=== PATIENT | female | born 1980 | race Caucasian/White ===

== ENCOUNTER 2022-08-05 22:40 | Emergency (ER) | payer OTHER, SELFPAY ==
--- NOTE | ~2022-08-05 | CT_ITS ---
EXAMINATION: CT head/brain wo IV con, CT facial bones w IV con CLINICAL INFORMATION: Reason for Exam Changes in vision, left orbital abscess COMPARISON: CT head 01/23/2017 TECHNIQUE: Contiguous axial imaging was performed from the skull base to vertex without intravenous contrast. Sagittal and coronal reformatted images were obtained. This CT examination was performed using dose optimization techniques as appropriate, variously including the following: * Automated exposure control * Adjustment of mA and/or kV according to patient size (this includes techniques or standardized protocols for targeted exams where dose is matched to indication/reason for exam; i.e. extremities or head) Use of iterative reconstruction technique DLP: 677 mGy-cm FINDINGS: HEAD: Please note that streak artifact from metallic earrings limit assessment of the posterior fossa. The ventricles and sulci are normal in size and configuration without significant volume loss or hydrocephalus. There is no abnormal attenuation within the brain parenchyma. No territorial loss of ledezma-white differentiation. No acute intracranial hemorrhage or extra-axial fluid collection. No mass lesion, significant mass effect, or herniation pattern. Osseous structures are intact. FACIAL: There is nonspecific soft tissue swelling/subcutaneous induration within the left inferior preseptal soft tissues tracking into the left facial soft tissues. No drainable soft tissue abscess. No post septal involvement. There is no retrobulbar hematoma/fluid collection. The extraocular muscles and optic nerve sheath complexes are symmetric and normal in appearance. The globes are normal and symmetric. The maxillofacial structures are intact without fracture or suspicious osseous lesion. The osseous structures of the central skull base are intact. The paranasal sinuses are clear without fluid levels. The mastoid air cells and middle ear cavities are clear. Incidental 4 mm air-filled internal laryngocele on the right. Moderate volume adenoidal tonsillar tissue. A metallic tongue piercing and metallic nasal piercings are seen. Mild C5-C6 discogenic disease with small disc osteophyte complex at this level. Normal enhancement of the imaged vascular structures in the neck. CT/CT facial bones w IV con IMPRESSION: 1. No acute intracranial abnormality. 2. There is soft tissue swelling/induration within the left inferior preseptal soft tissues tracking into the left facial soft tissues. No postseptal disease or drainable soft tissue abscess.
[2022-08-05 22:47] VITALS: BP 142/102; PULSE 105; RESP 20; TEMP 36.7; O2SAT 96; BMI 25.9
--- NOTE | 2022-08-05 23:19 | ED.GENADULT ---
HPI - General Adult General Chief complaint: Skin/Abscess/Foreign Body Stated complaint: Infected piercing, and cough Time Seen by Provider: 08/05/22 23:13 Source: patient Mode of arrival: ambulatory Limitations: no limitations History of Present Illness HPI narrative: 41-year-old female presents for evaluation for upper respiratory symptoms and cellulitis to left side of her face. Patient had a piercing below the left lateral eye, the piercing fell out and is now infected. She stated that there is some green drainage that came out of it yesterday and there is some redness surrounding her puncture site. She states that she cannot see out of her left eye and that it hurts when she moves. She does not report any fevers or chills, and is visibly intoxicated at this time. Onset (ago): day(s) (1) Location: face Radiation: non-radiation Severity: mild Quality: burning Pain Consistency: constant Relieving factors: none Exacerbating factors: other (Palpation) Treatments prior to arrival: none Related Data Previous Rx's Medication Instructions Recorded sulfamethoxazole 800 1 tab PO Q12H 7 days #14 tabs 08/06/22 mg-trimethoprim 160 mg tablet (Bactrim DS) Allergies Allergy/AdvReac Type Severity Reaction Status Date / Time No Known Allergies Allergy Unverified 03/23/20 16:45 [No Known Allergies*] Review of Systems Review of Systems: Constitutional: No Fever, No Chills ENT/Mouth: No Ear Pain, No Hoarseness, positive sore throat Eyes: Positive left Eye Pain, No Swelling, No Redness, No Foreign Body Cardiovascular: No Chest Pain, No SOB Respiratory: No Cough, No Dyspnea Gastrointestinal: No Nausea, No Vomiting, No Diarrhea, No abdominal Pain Genitourinary: No Dysuria, No Hematuria Musculoskeletal: positive left-sided facial pain, No Myalgias, No Joint Swelling Skin: Left-sided facial cellulitis, No Skin lacerations, No rash Neuro: No Weakness, No Numbness, No Paresthesias, No Dizziness, No Headache Yes all other systems are reviewed and are negative [facility] Past Medical History Attestation statement: The following information was validated with the patient. Source: old records reviewed Social History Social History Advance Directives: No Physical Exam ED Vital Signs: Vital Signs - 24 hr 08/05/22 22:47 08/06/22 00:20 Temperature 98.0 F 98.4 F Pulse Rate 105 H 72 Respiratory Rate 20 16 Blood Pressure 142/102 H 140/78 H Pulse Oximetry 96 97 Oxygen Delivery Method Room Air Room Air BMI result Body Mass Index 25.9 Appearance: Alert. Oriented X3. No acute distress. Intoxicated Eyes: Pupils equal, round and reactive to light. ENT: Pharynx normal. Neck: Normal inspection. Neck supple. CVS: Normal heart rate and rhythm. Pulses normal. Respiratory: No respiratory distress. Breath sounds normal. Abdomen: Soft and nontender. Skin: Cellulitis to the left lateral cheek Extremities: No lower extremity edema. Gait balanced and coordinated Neuro: No motor deficit. No sensory deficit. Cranial nerves 2-12 intact Course Course Course Narrative: 41-year-old female presents with left-sided facial cellulitis and upper respiratory symptoms. Cellulitis is 1-day-old, she had a piercing to the left side of her face under her left lateral eye on the cheek bone, states that the piercing fell out and noted to be red with green drainage for 1 day. Patient is visibly intoxicated, smells of alcohol, states that she had multiple drinks and cannot recall how many. She does have a history of illicit drug use, but states that she has not used any cocaine today. Patient states that her left eye hurts when she moves it, and that she is having trouble seeing. I held 2 fingers in front of her eye, and she states that she cannot recognize what I am holding in front of her. Interesting to note, the patient is able to use her cellphone without difficulty. Based on patient's symptoms, will order CT scan of facial bones and head. Will order COVID testing as well. 02:02 CT scan of facial bones and head negative for acute findings requiring emergent intervention. There is some cellulitis without abscess. Will have patient follow-up with her primary care physician, give Bactrim DS for facial cellulitis. Patient does understand that she must use Tylenol Motrin as needed for pain management, and should abstain from illicit drug use. Patient verbalized understanding of and agrees plan of care discharge home. Verbalized understanding of signs and symptoms indicating need for emergent intervention. Medications Administered Discontinued Medications Generic Name Dose Route Start Last Admin Trade Name Freq PRN Reason Stop Dose Admin Iohexol 85 ml 08/06/22 01:24 08/06/22 01:25 Iohexol 350 Mg/Ml 100 Ml Infus..Btl IV 08/06/22 01:25 85 ml ONCE ONE Administration Medical Decision Making Differential Diagnosis Differential Diagnoses: The differential diagnosis associated with the presentation includes Admission/Observation Consideration of admission/observation: Escalation of care including admission/observation considered If abscess indicated, will consider admission Lab Data MDM Lab Attestation statement: I reviewed the patient's lab results. Labs: Lab Results 08/05/22 Range/Units 00:22 Influenza Type A (PCR) NEGATIVE (Negative) Influenza Type B (PCR) NEGATIVE (Negative) RSV RNA Qual (PCR) NEGATIVE (Negative) SARS-CoV-2 RNA (RT-PCR) NEGATIVE (Negative) Independent Interpretation I performed an independent interpretation of an: CT Scan Interpretation: FINDINGS: HEAD: Please note that streak artifact from metallic earrings limit assessment of the posterior fossa. The ventricles and sulci are normal in size and configuration without significant volume loss or hydrocephalus.? There is no abnormal attenuation within the brain parenchyma.? No territorial loss of ledezma-white differentiation. No acute intracranial hemorrhage or extra-axial fluid collection.? No mass lesion, significant mass effect, or herniation pattern. Osseous structures are intact. FACIAL: There is nonspecific soft tissue swelling/subcutaneous induration within the left inferior preseptal soft tissues tracking into the left facial soft tissues. No drainable soft tissue abscess. No post septal involvement. There is no retrobulbar hematoma/fluid collection. The extraocular muscles and optic nerve sheath complexes are symmetric and normal in appearance. The globes are normal and symmetric. The maxillofacial structures are intact without fracture or suspicious osseous lesion. The osseous structures of the central skull base are intact. The paranasal sinuses are clear without fluid levels. The mastoid air cells and middle ear cavities are clear. Incidental 4 mm air-filled internal laryngocele on the right. Moderate volume adenoidal tonsillar tissue. A metallic tongue piercing and metallic nasal piercings are seen. Mild C5-C6 discogenic disease with small disc osteophyte complex at this level. Normal enhancement of the imaged vascular structures in the neck. CT/CT head/brain wo IV con IMPRESSION: 1.? No acute intracranial abnormality. 2.? There is soft tissue swelling/induration within the left inferior preseptal soft tissues tracking into the left facial soft tissues. No postseptal disease or drainable soft tissue abscess. Radiology Impression Discussion of test interpretation with radiology: I have reviewed the radiologist's reading. Independent Historian Clinical information obtained from an independent historian. History obtained from or confirmed by: Spouse External Record Review External record reviewed: Outpatient record No prior records at this facility Prescription Management I considered prescription management with: Antibiotic Social Determinants Patient?s care significantly limited by Social Determinants of Health including: Other Social Determinant of Health Discharge Plan Discharge Clinical Impression: Cellulitis, Acute viral syndrome Patient Disposition: Home, Self-Care Instructions: Cellulitis (ED), Viral Syndrome (ED) Additional Instructions: You were evaluated for cellulitis to your face and upper respiratory symptoms. Please take Bactrim DS every 12 hours for the next 7 days. Alternate Tylenol 650 mg every 6 hours and Motrin 600 mg every 6 hours as needed for pain and fever management. Consider taking these medications 3 hours apart so you have pain and fever management every 3 hours. Write down what time you take these medications to prevent accidental overdose. Thank you for choosing this emergency department for evaluation. Please follow-up with primary care physician as needed. Return to the emergency department for any new, concerning, or worsening symptoms. Prescriptions: New sulfamethoxazole-trimethoprim [Bactrim DS] 800-160 mg tablet 1 tab PO Q12H 7 Days Qty: 14 0RF Referrals: Pamela Patrick MD [Primary Care Provider] - 1 week (Facial cellulitis)
[2022-08-06 00:20] VITALS: BP 140/78; PULSE 72; RESP 16; TEMP 36.9; O2SAT 97
[2022-08-06 01:14] LABS: Influenza A PCR NEGATIVE (Negative); Influenza B PCR NEGATIVE (Negative); Resp Syncy Virus RNA Qual PCR NEGATIVE (Negative); SARS COV2 PCR INHOUSE NEGATIVE (Negative)
[2022-08-06] MEDS: iohexoL 350 MG/ML 100 ML INFUS..BTL 85 ML IV (01:25)
== END 2022-08-06 02:58 | disposition home or self-care (01) ==
PROVIDERS: Nurse Practitioner Family; Emergency Provider Emergency Medicine; PCP Internal Medicine
DX: L03.211 Cellulitis of face (principal); B34.9 Viral infection, unspecified; Z20.822 Contact with and (suspected) exposure to COVID-19; Z20.828 Contact with and (suspected) exposure to other viral communicable diseases; Z79.899 Other long term (current) drug therapy
CPT/HCPCS: 0241U; 70450; 70487; 99283; 99284; Q9967

== ENCOUNTER 2023-06-02 18:21 | Emergency (ER) | payer OTHER, SELFPAY ==
--- NOTE | ~2023-06-02 | US_ITS ---
Examination: Ultrasound OB limited. CLINICAL INDICATION: Status post DC one month ago. Rule out residual products of conception. COMPARISON: None. TECHNIQUE: Transabdominal and transvaginal imaging of pelvis is performed. FINDINGS: The uterus is anteverted measuring 7.7 x 3.4 x 5.1 cm. Endometrial thickness is 0.5 cm. There are 2 hypoechoic lesions. 1. Lesion in the upper body of uterus measures 0.8 x 0.4 x 0.6 cm. 2. Lesion in the right fundus measures 0.7 x 0.5 x 0.6 cm. There is a small complex fundal cyst measuring 1.1 x 0.9 x 1.0 cm. There are additional small myometrial simple cyst visualized measuring 0.4 x 0.3 x 0.3 cm and 0.4 x 0.2 x 0.3 cm. There is small amount of free fluid in endocervical canal. Right ovary measures 4.5 x 3.4 x 3.6 cm and volume 29 mL. There is a moderate size simple cyst measuring 2.3 x 2.2 x 3.2 cm. Normal arterial and venous flow seen in the right ovary. Left ovary measures 3.2 x 1.4 x 2.9 cm and volume 7.0 mL. Normal arterial and venous Doppler flow seen. There is no free fluid in the cul-de-sac. US/US OB limited IMPRESSION: At least 2 uterine fibroids. Several myometrial cysts. There is a small complex cyst in the fundus as described above. There is free fluid in the cul-de-sac. Moderate size simple cyst right ovary.
--- NOTE | ~2023-06-02 | US_ITS ---
Examination: Ultrasound OB limited. CLINICAL INDICATION: Status post DC one month ago. Rule out residual products of conception. COMPARISON: None. TECHNIQUE: Transabdominal and transvaginal imaging of pelvis is performed. FINDINGS: The uterus is anteverted measuring 7.7 x 3.4 x 5.1 cm. Endometrial thickness is 0.5 cm. There are 2 hypoechoic lesions. 1. Lesion in the upper body of uterus measures 0.8 x 0.4 x 0.6 cm. 2. Lesion in the right fundus measures 0.7 x 0.5 x 0.6 cm. There is a small complex fundal cyst measuring 1.1 x 0.9 x 1.0 cm. There are additional small myometrial simple cyst visualized measuring 0.4 x 0.3 x 0.3 cm and 0.4 x 0.2 x 0.3 cm. There is small amount of free fluid in endocervical canal. Right ovary measures 4.5 x 3.4 x 3.6 cm and volume 29 mL. There is a moderate size simple cyst measuring 2.3 x 2.2 x 3.2 cm. Normal arterial and venous flow seen in the right ovary. Left ovary measures 3.2 x 1.4 x 2.9 cm and volume 7.0 mL. Normal arterial and venous Doppler flow seen. There is no free fluid in the cul-de-sac. US/US OB transvaginal IMPRESSION: At least 2 uterine fibroids. Several myometrial cysts. There is a small complex cyst in the fundus as described above. There is free fluid in the cul-de-sac. Moderate size simple cyst right ovary.
[2023-06-02 18:44] VITALS: BP 129/76; PULSE 81; RESP 18; TEMP 36.2; O2SAT 99; BMI 23.2
--- NOTE | 2023-06-02 18:44 | ED.ABDPAIN ---
HPI - Abdominal Pain General Chief Complaint: Vaginal Bleeding Stated Complaint: ?Kidney stones Related Data Previous Rx's Medication Instructions Recorded sulfamethoxazole 800 1 tab PO Q12H 7 days #14 tabs 08/06/22 mg-trimethoprim 160 mg tablet (Bactrim DS) Allergies Allergy/AdvReac Type Severity Reaction Status Date / Time No Known Allergies Allergy Verified 06/02/23 18:48 [No Known Allergies*] PMFSH Social History Social History Advance Directives: No Advance Directives Information Provided: No Physical Exam ED Vital Signs: BMI result Body Mass Index 23.2 Course Course Course Narrative: This is a rapid medical exam. Deferred additional HPI, ROS, PE to primary provider. 42 yo female with no known medical history here with complaints of vomiting, chills, vaginal pain/pelvic pain, dysuria, hematuria vs vaginal bleeding. Had D&C one month ago with tubal ligation (was 7 weeks ). Will obtain labs, UA, urine VSS Medical Decision Making Lab Data 06/02/23 19:09 06/02/23 19:09 Labs: Lab Results 06/02/23 Range/Units 19:09 WBC 10.7 (4.8-10.8) X10*3/uL RBC 4.43 (4.20-5.50) X10*6/uL Hgb 13.2 (12.0-16.0) g/dl Hct 41.3 (37.0-47.0) % MCV 93.2 (80.0-98.0) fL MCH 29.8 (27.0-33.0) pg MCHC 32.0 (31.0-35.0) g/dl RDW 14.5 (11.0-16.0) % Plt Count 337 (160-400) X10*3/uL MPV 9.6 (9.4-12.3) fL Immature Gran % (Auto) 0.6 H (0.0-0.4) % Neut % (Auto) 68.5 (45-73) % Lymph % (Auto) 24.7 (20-40) % [place] % (Auto) 5.3 (2-11) % Eos % (Auto) 0.3 (0-4) % Baso % (Auto) 0.6 (0-2) % Lymph # (Auto) 2.6 (1.2-4.9) X10*3/uL [place] # (Auto) 0.6 (0.1-1.2) X10*3/uL Eos # (Auto) 0.0 (0.0-0.4) X10*3/uL Baso # (Auto) 0.1 (0.0-0.2) X10*3/uL Abs Immat Gran (auto) 0.06 H (0.00-0.03) X10*3/uL Absolute Neuts (auto) 7.3 (2.0-8.3) x10*3/uL Absolute Nucleated RBC 0.000 (0.0-0.012) X10*3/uL Nucleated RBC % (auto) 0.0 (0.0-0.2) /100WBC Sodium 144 (135-145) mmol/L Potassium 4.7 (3.3-5.1) mmol/L Chloride 112 H (96-108) mmol/L Carbon Dioxide 23 (22-29) mmol/L Anion Gap 14 (12-20) BUN 8 L (9-16) mg/dL Creatinine 0.69 (0.5-1.4) mg/dL Estim Creat Clear Calc 76.2 Estimated GFR > 60 Random Glucose 105 (60-115) mg/dL Calcium 8.7 (8.4-10.2) mg/dL Total Bilirubin 0.2 (0.0-1.0) mg/dL Direct Bilirubin < 0.2 (0.0-0.5) mg/dL AST 17 (5-31) U/L ALT 9 (0-31) U/L Alkaline Phosphatase 68 (39-117) U/L Total Protein 7.9 (6.5-8.0) g/dL Albumin 4.1 (3.5-5.0) g/dL Beta HCG, Quant < 2 mIU/mL Medications Administered Discontinued Medications Generic Name Dose Route Start Last Admin Trade Name Freq PRN Reason Stop Dose Admin Acetaminophen 975 mg 06/02/23 18:55 06/02/23 18:56 Acetaminophen 325 Mg Tablet PO 06/02/23 18:56 975 mg ONCE ONE Administration Discharge Plan Discharge Clinical Impression: Abdominal pain Patient Disposition: Left W/O Completing Treatment Prescriptions: No Action sulfamethoxazole-trimethoprim [Bactrim DS] 800-160 mg tablet 1 tab PO Q12H 7 Days Qty: 14 0RF Discharge Date/Time: 06/02/23 23:03
[2023-06-02] MEDS: Acetaminophen 325 MG TABLET 975 MG PO (18:56)
[2023-06-02 19:15] LABS: MANUAL DIFF FLAG NO
[2023-06-02 19:34] LABS: Basophils Absolute Auto 0.1 X10*3/uL (0.0-0.2); Basophils Percent Auto 0.6 % (0-2); Eosinophils Percent Auto 0.3 % (0-4); Hematocrit 41.3 % (37.0-47.0); Hemoglobin 13.2 g/dl (12.0-16.0); Imm Gran Abs Auto 0.06 X10*3/uL (0.00-0.03); Imm Gran Pct Auto 0.6 % (0.0-0.4); Lymphocytes Absolute Auto 2.6 X10*3/uL (1.2-4.9); Lymphocytes Percent Auto 24.7 % (20-40); Mean Corpuscular Hemoglobin 29.8 pg (27.0-33.0); Mean Corpuscular Volume 93.2 fL (80.0-98.0); Mean Platelet Volume 9.6 fL (9.4-12.3); Monocytes Absolute Auto 0.6 X10*3/uL (0.1-1.2); Monocytes Percent Auto 5.3 % (2-11); Neutrophils Absolute Auto 7.3 x10*3/uL (2.0-8.3); Neutrophils Percent Auto 68.5 % (45-73); Platelet Count 337 X10*3/uL (160-400); Red Blood Count 4.43 X10*6/uL (4.20-5.50); Red Cell Distribution Width 14.5 % (11.0-16.0); White Blood Count 10.7 X10*3/uL (4.8-10.8)
[2023-06-02 19:35] LABS: Alanine Aminotransferase 9 U/L (0-31); Albumin Level 4.1 g/dL (3.5-5.0); Alkaline Phosphatase 68 U/L (39-117); Anion Gap 14 (12-20); Aspartate Amino Transferase 17 U/L (5-31); Bilirubin Direct < 0.2 mg/dL (0.0-0.5); Bilirubin Total 0.2 mg/dL (0.0-1.0); Blood Urea Nitrogen 8 mg/dL (9-16); Calcium 8.7 mg/dL (8.4-10.2); Carbon Dioxide 23 mmol/L (22-29); Chloride 112 mmol/L (96-108); Creatinine Clr Calc Pharmacy 76.2; Estimated Glomerular Filt Rate > 60; Glucose Random 105 mg/dL (60-115); Potassium 4.7 mmol/L (3.3-5.1); Sodium 144 mmol/L (135-145); Total Protein 7.9 g/dL (6.5-8.0)
[2023-06-02 19:39] LABS: HCG Quantitative < 2 mIU/mL
== END 2023-06-02 23:03 | disposition left against medical advice (07) ==
PROVIDERS: Nurse Practitioner Family; Emergency Provider Emergency Medicine
DX: R10.2 Pelvic and perineal pain (principal); Z98.51 Tubal ligation status; Z53.21 Procedure and treatment not carried out due to patient leaving prior to being seen by health care provider
CPT/HCPCS: 36415; 76815; 76817; 80048; 80076; 84702; 85025; 99282; 99284

== ENCOUNTER 2024-01-02 15:12 | Emergency (ER) | payer OTHER, SELFPAY ==
[2024-01-02 15:30] VITALS: BP 166/101; PULSE 94; O2SAT 99
[2024-01-02 15:33] VITALS: BMI 23.8
[2024-01-02 15:45] VITALS: BP 146/91; PULSE 108; RESP 18; O2SAT 99
--- NOTE | 2024-01-02 15:52 | PC.NURSE ---
pt biba after taking multiple shots of unknown alcohol prior to suboxone clinic appointment. when showing up to appt intoxicated, staff called EMS. upon EMS arrival to ED - pt a&ox4 but clearly in distress/distraught emotionally. pt extremely tearful. pt attempted to elope but was detained by security/brought back to the bed. after multiple attempts at attempting to change pt over - pt finally changed over by security. belongings obtained/placed in locker #12. belongings list complete. when asking pt if she was SI/HI - pt stated i'm gonna feel suicidal if any of you come towards me any closer! hot car charger made aware of pt statements. no sob/wob noted. respirations even/unlabored. plan of care ongoing. call us placed within reach.
[2024-01-02 16:36] LABS: MANUAL DIFF FLAG NO
[2024-01-02 16:38] LABS: Basophils Absolute Auto 0.1 X10*3/uL (0.0-0.2); Basophils Percent Auto 0.9 % (0-2); Eosinophils Absolute Auto 0.1 X10*3/uL (0.0-0.4); Eosinophils Percent Auto 0.8 % (0-4); Hematocrit 43.9 % (37.0-47.0); Hemoglobin 14.4 g/dl (12.0-16.0); Imm Gran Abs Auto 0.05 X10*3/uL (0.00-0.03); Imm Gran Pct Auto 0.5 % (0.0-0.4); Lymphocytes Absolute Auto 3.4 X10*3/uL (1.2-4.9); Lymphocytes Percent Auto 33.8 % (20-40); Mean Corpuscular HGB Conc 32.8 g/dl (31.0-35.0); Mean Corpuscular Hemoglobin 29.8 pg (27.0-33.0); Mean Corpuscular Volume 90.7 fL (80.0-98.0); Mean Platelet Volume 9.5 fL (9.4-12.3); Monocytes Absolute Auto 0.6 X10*3/uL (0.1-1.2); Monocytes Percent Auto 6.2 % (2-11); Neutrophils Absolute Auto 5.7 x10*3/uL (2.0-8.3); Neutrophils Percent Auto 57.8 % (45-73); Platelet Count 215 X10*3/uL (160-400); Red Blood Count 4.84 X10*6/uL (4.20-5.50); White Blood Count 9.9 X10*3/uL (4.8-10.8)
--- NOTE | 2024-01-02 16:59 | PC.NURSE ---
labs obtained/sent to lab by tech. pt seen by ED provider - pt denies SI/HI for provider. UA still needed at this time. pt aware. pt resting comfortably in no apparent distress. respirations remain even/unlabored.
[2024-01-02 17:00] LABS: Alanine Aminotransferase 10 U/L (0-31); Albumin Level 4.3 g/dL (3.5-5.0); Alkaline Phosphatase 74 U/L (39-117); Anion Gap 15 (12-20); Aspartate Amino Transferase 22 U/L (5-31); Bilirubin Total 0.2 mg/dL (0.0-1.0); Blood Urea Nitrogen 10 mg/dL (9-16); Calcium 9.1 mg/dL (8.4-10.2); Carbon Dioxide 23 mmol/L (22-29); Chloride 112 mmol/L (96-108); Creatinine Clr Calc Pharmacy 77.5; Estimated Glomerular Filt Rate > 60; Ethanol 384 mg/dL; Glucose Random 89 mg/dL (60-115); Potassium 3.9 mmol/L (3.3-5.1); Sodium 146 mmol/L (135-145); Total Protein 8.2 g/dL (6.5-8.0)
--- NOTE | 2024-01-02 17:28 | ED_ITS ---
HPI - Alcohol General Chief Complaint: ETOH/Substance Use Stated Complaint: ETOH Time Seen by Provider: 01/02/24 16:02 Source: EMS Mode of arrival: EMS Limitations: other ( intoxicated) History of Present Illness ED Provider: Dr. Maite Lemon HPI narrative: patient comes to the emergency room by ambulance. Since that earlier today, patient has substance abuse cross country/track and field coach dropped the patient off the [facility]. Patient showed up significantly intoxicated. Patient admits she took several shots of alcohol prior to arriving to the clinic. EMS was called and was brought to the emergency room. On arrival, patient tearful, not want to talk much. patient was by her nurse if she has any suicidal or homicidal thoughts, patient stated that if we keep waking her up, she will be suicidal. According to the patient's sponsor and staff at them [facility], there was no falls, no head injuries MD complaint: alcohol intoxication Related Data Previous Rx's ?Medication ?Instructions ?Recorded sulfamethoxazole 800 1 tab PO Q12H 7 days #14 tabs 08/06/22 mg-trimethoprim 160 mg tablet (Bactrim DS) Allergies Allergy/AdvReac Type Severity Reaction Status Date / Time No Known Allergies Allergy Verified 01/02/24 15:34 [No Known Allergies*] Review of Systems 2 Review of Systems: Yes Unobtainable due to mental status PMFSH Past Medical History Medical History (Updated 01/02/24 @ 17:45 by Maite Lemon MD) Alcohol abuse Polysubstance abuse Social History Social History Alcohol intake: current Alcohol intake frequency: 3 or more drinks per day Alcohol type: hard liquor Smoked in Last 30 Days: No Use of substances other than those prescribed or required for medical reasons: No Advance Directives: No Advance Directives Information Provided: No Do you have a plan to hurt others: No Plan Patient : No Physical Exam ED Vital Signs: Vital Signs - 24 hr 01/02/24 15:45 Pulse Rate 108 H Respiratory Rate 18 Blood Pressure 146/91 H Pulse Oximetry 99 Oxygen Delivery Method Room Air BMI result Body Mass Index 23.8 Const Other: Appearance: Alert. oriented x2, patient is intoxicated, tossing and turning in bed Eyes: Pupils equal, round and reactive to light. ENT: Pharynx normal. Neck: Normal inspection. Neck supple. No lymph nodes noted. No crepitus CVS: Normal heart rate and rhythm. Pulses normal. Normal S1 and S2 Respiratory: No respiratory distress. Breath sounds normal. No Wheezing. No rales Abdomen: Soft and nontender. No rigidity. No distention. Skin: Skin warm and dry. Normal skin color. Normal skin turgor. Extremities: No lower extremity edema. No Lacerations. No Rash Neuro: moving all extremities, slurred speech due to EtOH, Psych: calm, intoxicated Medical Decision Making Medical Decision Making [facility] Narrative: - my interpretation of labs: Normal hematology, normal chemistry, normal LFTs, ethanol level 384 - patient's vitals are stable - plan: Metabolize to freedom and reassess for SI HI when sober - 22:30, patient awake, alert and oriented x3, belligerent, states that she does not want to be here, denies SI or HI, requested food and requesting to be discharged - vitals stable gait, unassisted Differential Diagnosis Differential Diagnoses: The differential diagnosis associated with the presentation includes ( alcohol intoxication, polysubstance abuse) Admission/Observation Consideration of admission/observation: Escalation of care including admission/observation considered ( patient is under physician observation waiting to become sober) Lab Data [facility] Lab Attestation statement: I reviewed the patient's lab results. 01/02/24 16:32 01/02/24 16:32 Labs: Lab Results 01/02/24 Range/Units 16:32 WBC 9.9 (4.8-10.8) X10*3/uL RBC 4.84 (4.20-5.50) X10*6/uL Hgb 14.4 (12.0-16.0) g/dl Hct 43.9 (37.0-47.0) % MCV 90.7 (80.0-98.0) fL MCH 29.8 (27.0-33.0) pg MCHC 32.8 (31.0-35.0) g/dl RDW 15.0 (11.0-16.0) % Plt Count 215 D (160-400) X10*3/uL MPV 9.5 (9.4-12.3) fL Immature Gran % (Auto) 0.5 H (0.0-0.4) % Neut % (Auto) 57.8 (45-73) % Lymph % (Auto) 33.8 (20-40) % [place] % (Auto) 6.2 (2-11) % Eos % (Auto) 0.8 (0-4) % Baso % (Auto) 0.9 (0-2) % Lymph # (Auto) 3.4 (1.2-4.9) X10*3/uL [place] # (Auto) 0.6 (0.1-1.2) X10*3/uL Eos # (Auto) 0.1 (0.0-0.4) X10*3/uL Baso # (Auto) 0.1 (0.0-0.2) X10*3/uL Abs Immat Gran (auto) 0.05 H (0.00-0.03) X10*3/uL Absolute Neuts (auto) 5.7 (2.0-8.3) x10*3/uL Absolute Nucleated RBC 0.000 (0.0-0.012) X10*3/uL Nucleated RBC % (auto) 0.0 (0.0-0.2) /100WBC Sodium 146 H (135-145) mmol/L Potassium 3.9 (3.3-5.1) mmol/L Chloride 112 H (96-108) mmol/L Carbon Dioxide 23 (22-29) mmol/L Anion Gap 15 (12-20) BUN 10 (9-16) mg/dL Creatinine 0.74 (0.5-1.4) mg/dL Estim Creat Clear Calc 77.5 Estimated GFR > 60 Random Glucose 89 (60-115) mg/dL Calcium 9.1 (8.4-10.2) mg/dL Total Bilirubin 0.2 (0.0-1.0) mg/dL AST 22 (5-31) U/L ALT 10 (0-31) U/L Alkaline Phosphatase 74 (39-117) U/L Total Protein 8.2 H (6.5-8.0) g/dL Albumin 4.3 (3.5-5.0) g/dL Ethyl Alcohol 384 H* mg/dL Discharge Plan Discharge Clinical Impression: Alcoholic intoxication Patient Disposition: Home, Self-Care Instructions: Alcohol Intoxication (ED) Additional Instructions: Please follow-up with your primary care physician tomorrow. If you have any worsening or new symptoms, please return to the emergency room or call 911 Prescriptions: No Action sulfamethoxazole-trimethoprim [Bactrim DS] 800-160 mg tablet 1 tab PO Q12H 7 Days Qty: 14 0RF Print Language: Belarusian
--- NOTE | 2024-01-02 18:30 | PC.NURSE ---
diet order placed. pt remains in no apparent distress. respirations remain even/unlabored.
[2024-01-02 22:30] VITALS: BP 146/91; PULSE 108; RESP 18; TEMP -17.7; TEMP 0; O2SAT 99
== END 2024-01-02 22:32 | disposition home or self-care (01) ==
PROVIDERS: Emergency Provider Emergency Medicine
DX: F10.129 Alcohol abuse with intoxication, unspecified (principal); Y90.8 Blood alcohol level of 240 mg/100 ml or more; Z79.899 Other long term (current) drug therapy
CPT/HCPCS: 36415; 80053; 80307; 85025; 99284

== ENCOUNTER 2024-03-06 19:35 | Emergency (ER) | payer OTHER, SELFPAY ==
[2024-03-06 19:39] VITALS: BP 132/80; PULSE 107; O2SAT 98
[2024-03-06 19:43] VITALS: BP 136/83; PULSE 95; RESP 17; TEMP 36.7; O2SAT 97; BMI 24.4
[2024-03-06 19:47] VITALS: BP 138/85; PULSE 91; RESP 20; O2SAT 98
[2024-03-06 20:25] LABS: MANUAL DIFF FLAG NO
[2024-03-06 20:26] LABS: Basophils Absolute Auto 0.1 X10*3/uL (0.0-0.2); Basophils Percent Auto 0.8 % (0-2); Eosinophils Absolute Auto 0.1 X10*3/uL (0.0-0.4); Eosinophils Percent Auto 0.5 % (0-4); Hematocrit 35.9 % (37.0-47.0); Imm Gran Abs Auto 0.03 X10*3/uL (0.00-0.03); Imm Gran Pct Auto 0.3 % (0.0-0.4); Mean Corpuscular HGB Conc 33.4 g/dl (31.0-35.0); Mean Corpuscular Hemoglobin 32.4 pg (27.0-33.0); Mean Platelet Volume 8.8 fL (9.4-12.3); Monocytes Absolute Auto 0.7 X10*3/uL (0.1-1.2); Monocytes Percent Auto 7.2 % (2-11); Neutrophils Absolute Auto 4.6 x10*3/uL (2.0-8.3); Neutrophils Percent Auto 49.2 % (45-73); Platelet Count 224 X10*3/uL (160-400); Red Cell Distribution Width 16.5 % (11.0-16.0); White Blood Count 9.5 X10*3/uL (4.8-10.8)
[2024-03-06 20:44] LABS: Alanine Aminotransferase 10 U/L (0-31); Alkaline Phosphatase 85 U/L (39-117); Anion Gap 12 (12-20); Aspartate Amino Transferase 17 U/L (5-31); Bilirubin Total 0.2 mg/dL (0.0-1.0); Blood Urea Nitrogen 8 mg/dL (9-16); Carbon Dioxide 30 mmol/L (22-29); Chloride 108 mmol/L (96-108); Creatinine Clr Calc Pharmacy 79.5; Estimated Glomerular Filt Rate > 60; Glucose Random 100 mg/dL (60-115); Potassium 3.2 mmol/L (3.3-5.1); Sodium 147 mmol/L (135-145); Total Protein 7.5 g/dL (6.5-8.0)
[2024-03-06 21:11] LABS: Appearance Urine Clear; Color Urine Yellow; Glucose Urine UA Negative (Negative); Leukocyte Esterase Urine Small (1+) (Negative); Nitrite Urine Negative (Negative); Specific Gravity - Urine <= 1.005 (1.005-1.025); UMIC TRIGGER UACC YES; Urine Blood Negative (Negative); Urine Ketones Negative (Negative); Urine Protein Trace mg/dL (Neg-Trace)
[2024-03-06 21:15] LABS: Bacteria Urine None Seen (None Seen); RBC Urine 0-2 /HPF (0-2); Squamous Epithelial Cell Urine 0-2 /HPF (0-2); UACC Culture Trigger YES
[2024-03-06 21:20] LABS: Amphetamine Screen Urine Not Detected (Not Detect); Barbiturates, Urine Not Detected (Not Detect); Benzodiazepines Screen Urine Not Detected (Not Detect); Buprenorphine Scr Positive (Not Detect); Cannabinoid Screen Urine POSITIVE (Not Detect); Cocaine Screen Urine Not Detected (Not Detect); Fentanyl, urine POSITIVE (Not Detect); Methadone Screen, Urine Not Detected (Not Detect); Opiate Screen Urine Not Detected (Not Detect); Oxycodone Screen Urine Not Detected (Not Detect); Phencyclidine Screen Urine Not Detected (Not Detect)
--- NOTE | 2024-03-06 21:20 | MHC.EDTECH ---
Patient states to this tech that she will leave if I'm not seen in the next 30 minutes. This tech stated that I would relay information to RN.
--- NOTE | 2024-03-06 21:32 | ED.BURNSMOKE ---
HPI - Burn/Smoke Inhalation General Chief complaint: Skin/Abscess/Foreign Body Stated complaint: BURNED LEG ON PIZZA OVEN X 5DAYS, FEELS FEVERISH Time Seen by Provider: 03/06/24 21:05 Source: patient Mode of arrival: ambulatory Limitations: no limitations History of Present Illness HPI Narrative: Patient came here for second-degree burn on the left lower thigh from the hot Pizza oven door which happened about 4 days ago patient also complaining of burning sensation both eyes with purulent discharge for last 2 weeks Related Data Previous Rx's ?Medication ?Instructions ?Recorded sulfamethoxazole 800 1 tab PO Q12H 7 days #14 tabs 08/06/22 mg-trimethoprim 160 mg tablet (Bactrim DS) cephalexin 500 mg capsule 500 mg PO QID 10 days #40 caps 03/06/24 silver sulfadiazine 1 % topical 1 appl topical BID #50 grams 03/06/24 cream (Silvadene) tobramycin 0.3 % eye drops 2 drp ophthalmic (eye) Q4H #5 mL 03/06/24 Allergies Allergy/AdvReac Type Severity Reaction Status Date / Time No Known Allergies Allergy Verified 03/06/24 19:46 [No Known Allergies*] Review of Systems Review of Systems: Yes all other systems are reviewed and are negative [facility] Past Medical History Medical History Alcohol abuse Polysubstance abuse Social History Social History Alcohol intake: current Alcohol intake frequency: 3 or more drinks per day Alcohol type: hard liquor Advance Directives: No Advance Directives Information Provided: No Physical Exam Vital Signs: Vital Signs: Last Vital Signs Temp 98.9 F 03/06/24 21:47 Pulse 98 03/06/24 21:47 Resp 15 03/06/24 21:47 BP 119/56 L 03/06/24 21:47 Pulse Ox 97 03/06/24 21:47 O2 Del Method Room Air 03/06/24 21:47 BMI result Body Mass Index 24.4 Appearance: Alert. Oriented X3. No acute distress. Eyes: Bilateral inflamed conjunctiva no purulent discharge ENT: Pharynx normal. Oral Mucosa moist Neck: Normal inspection. Neck supple. CVS: Normal heart rate and rhythm. Pulses normal. Respiratory: No respiratory distress. Equal air entry bilateral, Abdomen: Soft and nontender. Bowel sounds are present, no mass palpable, no CVA tenderness Skin: Skin warm and dry. Second-degree burn about a size of 5 x 5 cm left lower thigh on the lateral aspect no purulent discharge base with granulation tissue Extremities: No lower extremity edema. No calf tenderness Neuro: Oriented X 3. No motor deficit. Steady gait Medications Administered Discontinued Medications Generic Name Dose Route Start Last Admin Trade Name Freq PRN Reason Stop Dose Admin Cephalexin HCl 500 mg 03/06/24 21:27 03/06/24 21:37 Cephalexin 500 Mg Capsule PO 03/06/24 21:28 500 mg ONCE ONE Administration Potassium Chloride 20 meq 03/06/24 21:26 03/06/24 21:37 Potassium Chloride Er 20 Meq Tab.Er.Prt PO 03/06/24 21:27 20 meq ONCE ONE Administration Silver Sulfadiazine 1 appl 03/06/24 21:26 03/06/24 21:37 Silver Sulfadiazine 1 % Cream 20 Gm Tube TOPICAL 03/06/24 21:27 1 appl ONCE ONE Administration Tobramycin Sulfate 2 drop 03/06/24 21:26 03/06/24 21:37 Tobramycin Sulfate 0.3% Zohreh Op 5 Ml Btl EYE-BOTH 03/06/24 21:27 2 drop ONCE ONE Administration Medical Decision Making Medical Decision Making [facility] Narrative: Patient's second-degree burn on left lower thigh which Silvadene cream was applied will give prescription cephalexin also patient conjunctivitis will give tobramycin patient does have history of substance abuse denied any help has ride to take her home Lab Data [facility] Lab Attestation statement: I reviewed the patient's lab results. 03/06/24 20:19 03/06/24 20:19 Labs: Lab Results 03/06/24 03/06/24 Range/Units 20:19 21:03 WBC 9.5 (4.8-10.8) X10*3/uL RBC 3.70 L D (4.20-5.50) X10*6/uL Hgb 12.0 (12.0-16.0) g/dl Hct 35.9 L (37.0-47.0) % MCV 97.0 (80.0-98.0) fL MCH 32.4 (27.0-33.0) pg MCHC 33.4 (31.0-35.0) g/dl RDW 16.5 H (11.0-16.0) % Plt Count 224 (160-400) X10*3/uL MPV 8.8 L (9.4-12.3) fL Immature Gran % (Auto) 0.3 (0.0-0.4) % Neut % (Auto) 49.2 (45-73) % Lymph % (Auto) 42.0 H (20-40) % [place] % (Auto) 7.2 (2-11) % Eos % (Auto) 0.5 (0-4) % Baso % (Auto) 0.8 (0-2) % Lymph # (Auto) 4.0 (1.2-4.9) X10*3/uL [place] # (Auto) 0.7 (0.1-1.2) X10*3/uL Eos # (Auto) 0.1 (0.0-0.4) X10*3/uL Baso # (Auto) 0.1 (0.0-0.2) X10*3/uL Abs Immat Gran (auto) 0.03 (0.00-0.03) X10*3/uL Absolute Neuts (auto) 4.6 (2.0-8.3) x10*3/uL Absolute Nucleated RBC 0.000 (0.0-0.012) X10*3/uL Nucleated RBC % (auto) 0.0 (0.0-0.2) /100WBC Sodium 147 H (135-145) mmol/L Potassium 3.2 L (3.3-5.1) mmol/L Chloride 108 (96-108) mmol/L Carbon Dioxide 30 H (22-29) mmol/L Anion Gap 12 (12-20) BUN 8 L (9-16) mg/dL Creatinine 0.72 (0.5-1.4) mg/dL Estim Creat Clear Calc 79.5 Estimated GFR > 60 Random Glucose 100 (60-115) mg/dL Calcium 9.0 (8.4-10.2) mg/dL Total Bilirubin 0.2 (0.0-1.0) mg/dL AST 17 (5-31) U/L ALT 10 (0-31) U/L Alkaline Phosphatase 85 (39-117) U/L Total Protein 7.5 (6.5-8.0) g/dL Albumin 4.0 (3.5-5.0) g/dL Urine Color Yellow Urine Appearance Clear Urine pH 6.0 (5.0-9.0) Ur Specific [place] <= 1.005 (1.005-1.025) Urine Protein Trace (Neg-Trace) mg/dL Urine Glucose (UA) Negative (Negative) mg/dL Urine Ketones Negative (Negative) mg/dL Urine Blood Negative (Negative) Urine Nitrite Negative (Negative) Ur Leukocyte Esterase Small (1+) H (Negative) Urine RBC 0-2 (0-2) /HPF Urine WBC 6-10 H (0-5) /HPF Ur Squamous Epith Cells 0-2 (0-2) /HPF Urine Bacteria None Seen (None Seen) Hyaline Casts 3-5 (0-2) /LPF Urine Opiates Screen Not Detected (Not Detect) Ur Buprenorphine Scrn Positive H (Not Detect) ng/mL Ur Oxycodone Screen Not Detected (Not Detect) ng/mL Urine Methadone Screen Not Detected (Not Detect) ng/mL Urine Fentanyl Screen POSITIVE H (Not Detect) Ur Barbiturates Screen Not Detected (Not Detect) Ur Phencyclidine Scrn Not Detected (Not Detect) Ur Amphetamines Screen Not Detected (Not Detect) U Benzodiazepines Scrn Not Detected (Not Detect) Urine Cocaine Screen Not Detected (Not Detect) U Marijuana (THC) Screen POSITIVE H (Not Detect) Discharge Plan Discharge Clinical Impression: Second degree burn of left leg, Conjunctivitis Patient Disposition: Home, Self-Care Instructions: Second Degree Burn (ED), Conjunctivitis (ED) Additional Instructions: Local care as advised Apply Silvadene cream twice a day until heals complete Antibiotic as prescribed to avoid infection Antibiotic eyedrops as advised Prescriptions: New silver sulfadiazine [Silvadene] 1 % cream 1 appl topical BID Qty: 50 0RF Rx Instructions: apply a 1.5 mm thickness cephalexin 500 mg capsule 500 mg PO QID 10 Days Qty: 40 0RF tobramycin 0.3 % drops 2 drp ophthalmic (eye) Q4H Qty: 5 0RF No Action sulfamethoxazole-trimethoprim [Bactrim DS] 800-160 mg tablet 1 tab PO Q12H 7 Days Qty: 14 0RF Interventions: ED Discharge Assessment Last Done: 03/06/24 21:47 Discharge Date/Time: 03/06/24 21:49 Print Language: Romansh
[2024-03-06] MEDS: Tobramycin Sulfate 0.3% Sol Op 5 ML BTL 2 DROP EYE-BOTH (21:37)
[2024-03-06] MEDS: cephALEXin 500 MG CAPSULE PO (21:37)
[2024-03-06] MEDS: Silver Sulfadiazine 1 % Cream 20 GM TUBE 1 APPL TOPICAL (21:37)
[2024-03-06] MEDS: Potassium Chloride ER 20 MEQ TAB.ER.PRT PO (21:37)
[2024-03-06 21:38] VITALS: BP 119/56; PULSE 98; RESP 15; TEMP 37.2; O2SAT 97
--- NOTE | 2024-03-06 21:44 | PC.NURSE ---
Pt medicated per sep. Plan of care ongoing.
[2024-03-06 21:47] VITALS: BP 119/56; PULSE 98; RESP 15; TEMP 37.2; O2SAT 97
== END 2024-03-06 21:49 | disposition home or self-care (01) ==
PROVIDERS: Emergency Provider Internal Medicine
DX: T24.212A Burn of second degree of left thigh, initial encounter (principal); T31.0 Burns involving less than 10% of body surface; H10.9 Unspecified conjunctivitis; X19.XXXA Contact with other heat and hot substances, initial encounter; Y93.G3 Activity, cooking and baking; Y92.9 Unspecified place or not applicable; Y99.9 Unspecified external cause status
CPT/HCPCS: 16000; 36415; 80053; 80307; 81001; 85025; 87086; 99284

== ENCOUNTER 2024-05-07 15:42 | Emergency (ER) | payer OTHER, SELFPAY ==
[2024-05-07 15:50] VITALS: BP 150/90; PULSE 112; O2SAT 98
[2024-05-07 16:52] VITALS: BP 140/90; PULSE 107; RESP 20; TEMP 37.7; O2SAT 96; BMI 22.5
--- NOTE | 2024-05-07 18:12 | ED_ITS ---
HPI - General Adult General Chief complaint: Skin/Abscess/Foreign Body Stated complaint: L SIDE ABD PAIN LIGHTHEADED Time Seen by Provider: 05/07/24 17:35 Source: patient Mode of arrival: ambulatory Limitations: no limitations History of Present Illness ED Provider: Rhett Mtz PA-C HPI narrative: 43 yold female with pmh of substance abuse , but has been clean for 20 years presents to the ED for right abdominal painful mass with redness. patient states mass increase in size. patient states she may have been bitten y insect. Patient denies any injection or IV drug use/needle into abdomen. Patient denies any trauma. Related Data Previous Rx's ?Medication ?Instructions ?Recorded sulfamethoxazole 800 1 tab PO Q12H 7 days #14 tabs 08/06/22 mg-trimethoprim 160 mg tablet (Bactrim DS) cephalexin 500 mg capsule 500 mg PO QID 10 days #40 caps 03/06/24 silver sulfadiazine 1 % topical 1 appl topical BID #50 grams 03/06/24 cream (Silvadene) tobramycin 0.3 % eye drops 2 drp ophthalmic (eye) Q4H #5 mL 03/06/24 cephalexin 500 mg capsule 500 mg PO QID 7 days #28 caps 05/07/24 doxycycline hyclate 100 mg capsule 100 mg PO BID 7 days #14 caps 05/07/24 naproxen 500 mg tablet 500 mg PO BID PRN pain 7 days #14 05/07/24 tabs Allergies Allergy/AdvReac Type Severity Reaction Status Date / Time No Known Allergies Allergy Verified 05/07/24 16:56 [No Known Allergies*] Review of Systems Review of Systems: right abdominal wall redmass Yes all other systems are reviewed and are negative [facility] Past Medical History Medical History Alcohol abuse Polysubstance abuse Social History Social History Alcohol intake: current Alcohol intake frequency: 3 or more drinks per day Alcohol type: hard liquor Advance Directives: No Advance Directives Information Provided: No Do you have a plan to hurt others: No Plan Physical Exam ED Vital Signs: Vital Signs - 24 hr 05/07/24 16:52 Temperature 99.8 F Pulse Rate 107 H Respiratory Rate 20 Blood Pressure 140/90 H Pulse Oximetry 96 Oxygen Delivery Method Room Air BMI result Body Mass Index 22.5 Const General: cooperative, healthy appearing, comfortable, no acute distress, well developed, alert, awake and Physically active [facility] Head: Yes normal to inspection, Yes No palpable skull fracture present, Yes normocephalic, Yes atraumatic and No abrasion Eyes General: appearance normal, both eyes and all related structures Neck Neck: Yes normal visual inspection, Yes full ROM, Yes no lymphadenopathy, Yes no meningeal signs, Yes trachea midline, Yes supple, No anterior neck swelling and No tender Chest Chest palpation & inspection: normal inspection of the chest and normal palpation of entire chest wall Resp Effort & Inspection: normal respiratory effort and able to speak in complete sentences Auscultation: clear to auscultation bilaterally Cardio Jugular venous distension: no JVD Heart sounds: S1 normal heart sound present and S2 normal heart sound present GI Inspection: Yes normal to inspection Palpation (GI): Tenderness to palpation present (GI) (right mid abdominal erythematous mass) General: No CVA tenderness and Yes no CVA tenderness Back/Spine/Pelvis Back: no CVA tenderness, No CVA tenderness and No back tenderness Skin General skin exam: no rashes or lesions noted, elasticity normal and turgor normal Neuro General: gait normal, tone normal, moves all extremities, Normal light touch and pain sensation, no meningeal signs, no focal motor deficits, CN's II-XI intact bilaterally and normal sensation to monofilament Extrem General: Yes normal to inspection, Yes full ROM and Yes capillary refill normal Psych Appearance: grossly normal, well kempt and not disheveled Medications Administered Discontinued Medications Generic Name Dose Route Start Last Admin Trade Name Matthewq PRN Reason Stop Dose Admin Lidocaine HCl 5 ml 05/07/24 17:47 05/07/24 18:19 Lidocaine Hcl 1 % Mpf 5 Ml Vial INFILTRATI 05/07/24 17:48 5 ml ONCE ONE Administration Lidocaine HCl 5 ml 05/07/24 18:05 05/07/24 18:19 Lidocaine Hcl 1 % Mpf 5 Ml Vial INFILTRATI 05/07/24 18:06 5 ml ONCE ONE Administration Medical Decision Making Medical Decision Making MDM Narrative: [age] old female with right abdominal red painful mass that is tender and fluctuant on palpation. We will get a bedside ultrasound to see if ready for incision and drainage. Patient is sleeping comfortably in bed. 6;30pm: bedside ultrasound shows abscess. cleaned with sterile saline and pivodine iodine. lidocaine 1% 7ml used for local anethesia. size 11 blade used for incision. large pus collection drained. forceps used to open pockets. saline used for flushing abscess. patient did not want much packing. could not tolerate pain. patient left before appropriate dressing placed. discharge with antibiotics. patient explained worrisome signs and informed to return to the ED. . Differential Diagnosis Differential Diagnoses: The differential diagnosis associated with the presentation includes (abscess, cellulitis) Admission/Observation Consideration of admission/observation: Escalation of care including admission/observation considered Independent Historian Clinical information obtained from an independent historian. History obtained from or confirmed by: Other (patient) External Record Review External record reviewed: Other (prior visits) Prescription Management I considered prescription management with: Antibiotic Discharge Plan Discharge Clinical Impression: Abscess of skin or subcutaneous tissue Patient Disposition: Home, Self-Care Instructions: Abscess Follow-up (ED), Abscess Incision and Drainage (DC) Additional Instructions: Return to the ED in 2 days for wound check. Return to the ED immediately for worsening pain, increased redness, fever, chills, nausea, vomiting, abdominal pain, profuse pus discharge, any other concerning symptoms. Prescriptions: New cephalexin 500 mg capsule 500 mg PO QID 7 Days Qty: 28 0RF doxycycline hyclate 100 mg capsule 100 mg PO BID 7 Days Qty: 14 0RF naproxen 500 mg tablet 500 mg PO BID PRN (Reason: pain) 7 Days Qty: 14 0RF No Action sulfamethoxazole-trimethoprim [Bactrim DS] 800-160 mg tablet 1 tab PO Q12H 7 Days Qty: 14 0RF silver sulfadiazine [Silvadene] 1 % cream 1 appl topical BID Qty: 50 0RF Rx Instructions: apply a 1.5 mm thickness cephalexin 500 mg capsule 500 mg PO QID 10 Days Qty: 40 0RF tobramycin 0.3 % drops 2 drp ophthalmic (eye) Q4H Qty: 5 0RF Stand Alone Forms: Work/School Release Interventions: ED Discharge Assessment Last Done: 05/07/24 19:26 Discharge Date/Time: 05/07/24 19:26 Print Language: Spanish
[2024-05-07] MEDS: Lidocaine HCl 1 % MPF 5 ML VIAL INFILTRATI ×2 (18:19)
[2024-05-07 19:26] VITALS: BP 140/90; PULSE 107; RESP 20; TEMP 37.7; O2SAT 96
== END 2024-05-07 19:26 | disposition home or self-care (01) ==
PROVIDERS: Emergency Provider Emergency Medicine
DX: R42 Dizziness and giddiness (principal); Z79.899 Other long term (current) drug therapy
CPT/HCPCS: 10060; 99282; 99284; J2003

== ENCOUNTER 2024-05-12 13:04 | Emergency (ER) | payer OTHER, SELFPAY ==
--- NOTE | 2024-05-12 13:29 | PC.NURSE ---
pt left before triage
== END 2024-05-12 14:31 | disposition left against medical advice (07) ==
LOC: HO.ED 14:13
PROVIDERS: Emergency Provider Emergency Medicine
DX: L02.91 Cutaneous abscess, unspecified (principal)

== ENCOUNTER 2024-05-12 14:26 | Emergency (ER) | payer OTHER, SELFPAY ==
[2024-05-12 14:31] VITALS: BP 146/90; PULSE 94; O2SAT 98
== END 2024-05-12 16:29 | disposition left against medical advice (07) ==
PROVIDERS: Emergency Provider Emergency Medicine
DX: N61.1 Abscess of the breast and nipple (principal); R11.2 Nausea with vomiting, unspecified

== ENCOUNTER 2024-05-13 12:27 | Emergency (ER) | payer OTHER, SELFPAY ==
--- NOTE | ~2024-05-13 | US_ITS ---
EXAMINATION: US BREAST, UNILATERAL LEFT LIMITED CLINICAL INFORMATION: Left breast erythema, question abscess COMPARISON: None TECHNIQUE: High-resolution ledezma-scale sonography of the left breast was performed with attention to the superior region, the site of erythema. FINDINGS: On the submitted images, in the 12:00 position, there is an ill-defined 50 x 30 x 15 mm subdermal hypoechoic heterogeneous collection with peripheral hypervascularity. There are also foci of increased vascularity centrally, perhaps reflecting internal vessels. No discrete pocket of fluid is evident. US/US breast LT limited IMPRESSION: 1. Heterogeneous complex mass in the 12:00 position of the left breast might reflect mastitis, including granulomatous mastitis. However, neoplasm could have a similar appearance. Suggest close follow-up imaging, perhaps in 2 weeks, following a short course of antibiotic therapy. If persistent, histological evaluation and microbiological evaluation might be of benefit. Surgical consultation is also advised. 2. No drainable collection. BI-RADS 3: Probably Benign Finding(s). Short-interval follow-up recommended Electronically signed by: Arnav De La Fuente MD 05/13/2024 06:53 PM EST [facility]
[2024-05-13 12:32] VITALS: BP 140/90; PULSE 112; O2SAT 98
[2024-05-13 12:48] VITALS: BP 143/94; PULSE 115; RESP 20; TEMP 37.1; O2SAT 96; BMI 21.7
--- NOTE | 2024-05-13 12:49 | ED_ITS ---
HPI - Skin/Abscess/Foreign Bdy General Chief complaint: Skin/Abscess/Foreign Body Stated complaint: 2 ABSCESSES PER EMS Time Seen by Provider: 05/13/24 13:00 Source: patient, RN notes reviewed and old records reviewed Mode of arrival: ambulatory History of Present Illness ED Provider: Nella Leon PA-C HPI narrative: 43-year-old female with a past medical history of substance abuse, in remission per patient, complaining of painful abscess to left breast x2 weeks. Patient with recent abscess to right abdomen s/p I&D in the ED on 05/07/2024, admits to compliance with previously prescribed antibiotics (Keflex & Doxy). Denies drainage from area, fever, chills, IV drug use to area. Reports associated CP and SOB due to pain at site. Related Data Previous Rx's ?Medication ?Instructions ?Recorded sulfamethoxazole 800 1 tab PO Q12H 7 days #14 tabs 08/06/22 mg-trimethoprim 160 mg tablet (Bactrim DS) cephalexin 500 mg capsule 500 mg PO QID 10 days #40 caps 03/06/24 silver sulfadiazine 1 % topical 1 appl topical BID #50 grams 03/06/24 cream (Silvadene) tobramycin 0.3 % eye drops 2 drp ophthalmic (eye) Q4H #5 mL 03/06/24 cephalexin 500 mg capsule 500 mg PO QID 7 days #28 caps 05/07/24 doxycycline hyclate 100 mg capsule 100 mg PO BID 7 days #14 caps 05/07/24 naproxen 500 mg tablet 500 mg PO BID PRN pain 7 days #14 05/07/24 tabs clindamycin HCl 150 mg capsule 450 mg (3 x 150 mg) PO TID 7 days 05/13/24 #63 caps Allergies Allergy/AdvReac Type Severity Reaction Status Date / Time No Known Allergies Allergy Verified 05/13/24 12:51 [No Known Allergies*] Review of Systems 2 Review of Systems: Yes all other systems are reviewed and are negative Constitutional: Constitutional: Reports as per HPI [facility] Past Medical History Attestation statement: The following information was validated with the patient. Source: old records reviewed Medical History (Updated 05/13/24 @ 15:10 by TONIA Palacios) Alcohol abuse Polysubstance abuse Surgical History (Updated 05/13/24 @ 14:58 by Zaida Zepeda PA-C) H/O reduction mammoplasty Social History Social History Alcohol intake: current Alcohol intake frequency: 3 or more drinks per day Alcohol type: hard liquor Advance Directives: No Advance Directives Information Provided: Yes Physical Exam 2 Vital Signs: Vital Signs: Last Vital Signs Temp 98.7 F 05/13/24 12:48 Pulse 115 H 05/13/24 12:48 Resp 20 05/13/24 12:48 BP 143/94 H 05/13/24 12:48 Pulse Ox 96 05/13/24 12:48 O2 Del Method Room Air 05/13/24 12:48 BMI result Body Mass Index 21.7 Const: General: cooperative, healthy appearing and no acute distress O rientation/consciousness: patient oriented x3 Limitations: no limitations HEENT: Head: Yes normal to inspection and Yes atraumatic Ears: hearing grossly normal bilaterally General nose exam: Normal external nose present Face and sinus: Yes normal facial exam Eyes: General: appearance normal, both eyes and all related structures EOM: EOMs intact bilaterally Neck: Neck: Yes normal visual inspection and Yes no meningeal signs Chest: Other: + fluctuant and indurated erythematous a bscess noted to left breast at 12-1 o'clock position. Tender to palpation. No nipple involvement or nipple discharge. Resp: Effort & Inspection: normal respiratory effort and no respiratory distress Cardio: Rate: regular rate Skin: Rashes: no rashes Wounds: no wounds Neuro: General: patient oriented x3, tone normal and no meningeal signs C ranial nerves: Yes CN's II-XII intact bilaterally Gait exam (Neuro): Normal gait present Extrem: General: Yes normal to inspection Course Course Course Narrative: This is an RME: Additional HPI, ROS, PE not included below will be deferred to primary provider. RME assessment and note performed by: Suzette Storey PA-C This is a 43-year-old female who presents emergency department with complaints of left-sided breast pain, redness, and swelling. She states that this happened yesterday when she woke up. Patient was seen here on May 07 where she had an abscess on the right side of her abdomen excised and drained. She states that that has improved however states that she awoke yesterday morning with redness and swelling. Patient exposed herself in triage room, revealing left- sided breast redness, swelling, concerning for breast abscess. Patient endorses some chest pain and shortness for breath, states that this happens when taking deep inspirations due to the left breast pain she was experiencing. Plan: Labs, ultrasound, further ER evaluation needed. -1354--leukocytosis of 15.7 > will obtain lactic/blood cultures and give empiric Clindamycin. Potassium mildly low to 3.2 p.o. repletion ordered. Troponin negative > will consult General surgery, Dr. Yang. >> surgical PA evaluated patient in the ED, I&D recommended. I&D performed at bedside. Patient did receive IV clindamycin in the ED. -1508--patient's lactic acid elevated to 2.2. IVF ordered. Patient refusing additional treatment including fluids. Will sign out AMA. Discussed with patient potential admission however she is not agreeable. Patient is A&O x3, competent to make her own decisions. Risk of discussed. Recommended follow-up in surgeon's office tomorrow. Patient verbalized understanding -1513--patient eloped ED prior to signing AMA paperwork. Medications Administered Generic Name Dose Route Start Last Admin Trade Name Freq PRN Reason Stop Dose Admin Sodium Chloride 1,000 mls @ 999 mls/hr 05/13/24 14:45 05/13/24 15:11 Ns IV 05/13/24 15:45 Not Given .Q1H1M AURA Discontinued Medications Generic Name Dose Route Start Last Admin Trade Name Freq PRN Reason Stop Dose Admin Clindamycin Phosphate 600 mg in 50 mls @ 100 mls/hr 05/13/24 13:54 05/13/24 14:23 Cleocin IV 05/13/24 14:23 100 mls/hr ONCE ONE Administration Lidocaine HCl 10 ml 05/13/24 13:55 05/13/24 14:36 Lidocaine Hcl 1 % Mpf 5 Ml Vial INFILTRATI 05/13/24 13:56 10 ml ONCE ONE Administration Morphine Sulfate 4 mg 05/13/24 14:25 05/13/24 14:34 Morphine Sulfate 4 Mg/Ml Cartridge IVPUSH 05/13/24 14:26 4 mg ONCE ONE Administration Protocol Potassium Chloride 60 meq 05/13/24 13:48 05/13/24 15:11 Potassium Chloride Packet 20 Meq Packet PO 05/13/24 13:49 Not Given ONCE ONE Medical Decision Making Medical Decision Making [facility] Narrative: 43-year-old female with a past medical history of substance abuse, in remission per patient, complaining of painful abscess to left breast x2 weeks. On exam tachycardic likely from pain, NAD, nontoxic appearing, physical exam as noted above with appreciable abscess to left breast. Low suspicion for severe sepsis at this time. Unlikely ACS or PE Plan: EKG, Labs, ultrasound, consult General surgery Please refer to course for remaining clinical decision making, interpretation of labs/imaging results, and discussions with consultants and/or family members. Differential Diagnosis Differential Diagnoses: The differential diagnosis associated with the presentation includes As above Admission/Observation Consideration of admission/observation: Escalation of care including admission/observation considered Consult Healthcare Provider Management of the patient was discussed with: Landing Signal Officer Lab Data [facility] Lab Attestation statement: I reviewed the patient's lab results. 05/13/24 13:16 05/13/24 13:16 Labs: Lab Results 05/13/24 05/13/24 Range/Units 13:16 14:17 WBC 15.7 H (4.8-10.8) X10*3/uL RBC 3.90 L (4.20-5.50) X10*6/uL Hgb 12.2 (12.0-16.0) g/dl Hct 36.6 L (37.0-47.0) % MCV 93.8 (80.0-98.0) fL MCH 31.3 (27.0-33.0) pg MCHC 33.3 (31.0-35.0) g/dl RDW 14.4 (11.0-16.0) % Plt Count 314 D (160-400) X10*3/uL MPV 8.8 L (9.4-12.3) fL Immature Gran % (Auto) 0.6 H (0.0-0.4) % Neut % (Auto) 72.4 (45-73) % Lymph % (Auto) 20.9 (20-40) % [place] % (Auto) 5.6 (2-11) % Eos % (Auto) 0.2 (0-4) % Baso % (Auto) 0.3 (0-2) % Lymph # (Auto) 3.3 (1.2-4.9) X10*3/uL [place] # (Auto) 0.9 (0.1-1.2) X10*3/uL Eos # (Auto) 0.0 (0.0-0.4) X10*3/uL Baso # (Auto) 0.0 (0.0-0.2) X10*3/uL Abs Immat Gran (auto) 0.10 H (0.00-0.03) X10*3/uL Absolute Neuts (auto) 11.4 H (2.0-8.3) x10*3/uL Absolute Nucleated RBC 0.000 (0.0-0.012) X10*3/uL Nucleated RBC % (auto) 0.0 (0.0-0.2) /100WBC Sodium 142 (135-145) mmol/L Potassium 3.2 L (3.3-5.1) mmol/L Chloride 108 (96-108) mmol/L Carbon Dioxide 20 L (22-29) mmol/L Anion Gap 17 (12-20) BUN 16 (9-16) mg/dL Creatinine 0.60 (0.5-1.4) mg/dL Estim Creat Clear Calc 91.2 Estimated GFR > 60 Random Glucose 89 (60-115) mg/dL Lactic Acid 2.2 H* (0.5-2.0) mmol/L Calcium 9.6 D (8.4-10.2) mg/dL Total Bilirubin 0.2 (0.0-1.0) mg/dL Direct Bilirubin < 0.2 (0.0-0.5) mg/dL AST 20 (5-31) U/L ALT 11 (0-31) U/L Alkaline Phosphatase 97 (39-117) U/L Troponin I High Sens < 2.7 (<3.5-17.0) ng/L Total Protein 8.0 (6.5-8.0) g/dL Albumin 3.9 (3.5-5.0) g/dL Independent Interpretation I performed an independent interpretation of an: EKG and Ultrasound Radiology Impression Discussion of test interpretation with radiology: I have reviewed the radiologist's reading. External Record Review External record reviewed: Inpatient record, Office record, Outpatient record, Prior outpatient labs, Prior outpatient radiology, Primary care record and Outside ED record Tests considered The following testing was considered but not selected: As above Prescription Management I considered prescription management with: Pain Medication and Antibiotic Chronic Conditions Patient?s care impacted by: Other Social Determinants Patient?s care significantly limited by Social Determinants of Health including: Inadequate housing, Low income, Alcoholism and drug addiction in family, Problems related to primary support group, Unemployment, Problems related to employment and Other Social Determinant of Health Critical Care Time Critical Care Time Critical Care Time: Yes Total Critical Care Time: 45 Attestation: I have personally provided critical care time exclusive of time spent on separately billable procedures. Time includes review of lab data, radiology results, discussion with consultants, and monitoring for potential decompensation. Intervention performed as documented. Discharge Plan Discharge Clinical Impression: Left breast abscess Patient Disposition: Left Against Medical Advice Instructions: Abscess (ED) Additional Instructions: You have a left breast abscess that was drained today in the emergency department Clindamycin as an antibiotic please take as prescribed until completion Please follow-up and general surgeon's office tomorrow as discussed Evaluate the area daily, if is growing, becomes increasingly red/painful, you have fevers or continued drainage return to the ED Apply warm compresses Prescriptions: New clindamycin HCl 150 mg capsule 450 mg PO TID 7 Days Qty: 63 0RF No Action sulfamethoxazole-trimethoprim [Bactrim DS] 800-160 mg tablet 1 tab PO Q12H 7 Days Qty: 14 0RF silver sulfadiazine [Silvadene] 1 % cream 1 appl topical BID Qty: 50 0RF Rx Instructions: apply a 1.5 mm thickness cephalexin 500 mg capsule 500 mg PO QID 10 Days Qty: 40 0RF tobramycin 0.3 % drops 2 drp ophthalmic (eye) Q4H Qty: 5 0RF cephalexin 500 mg capsule 500 mg PO QID 7 Days Qty: 28 0RF doxycycline hyclate 100 mg capsule 100 mg PO BID 7 Days Qty: 14 0RF naproxen 500 mg tablet 500 mg PO BID PRN (Reason: pain) 7 Days Qty: 14 0RF Referrals: Flaquito Yang MD [Physician] - 1 day Stand Alone Forms: Against Medical Advice Print Language: [place]
--- NOTE | 2024-05-13 12:53 | ECG_ITS ---
Test Reason : chest discomfort Blood Pressure : / mmHG Vent. Rate : 097 BPM Atrial Rate : 097 BPM P-R Int : 130 ms QRS Dur : 076 ms QT Int : 356 ms P-R-T Axes : 067 059 056 degrees QTc Int : 452 ms Normal sinus rhythm Possible Left atrial enlargement Borderline ECG When compared with ECG of 02-JUL-2016 11:09, Vent. rate has increased BY 38 BPM Referred By: Suzette Storey Electronically Signed By:EVANGELISTA JUAREZ MD
[2024-05-13 13:20] LABS: MANUAL DIFF FLAG NO
[2024-05-13 13:25] LABS: Basophils Percent Auto 0.3 % (0-2); Eosinophils Percent Auto 0.2 % (0-4); Hematocrit 36.6 % (37.0-47.0); Hemoglobin 12.2 g/dl (12.0-16.0); Imm Gran Pct Auto 0.6 % (0.0-0.4); Lymphocytes Absolute Auto 3.3 X10*3/uL (1.2-4.9); Lymphocytes Percent Auto 20.9 % (20-40); Mean Corpuscular HGB Conc 33.3 g/dl (31.0-35.0); Mean Corpuscular Hemoglobin 31.3 pg (27.0-33.0); Mean Corpuscular Volume 93.8 fL (80.0-98.0); Mean Platelet Volume 8.8 fL (9.4-12.3); Monocytes Absolute Auto 0.9 X10*3/uL (0.1-1.2); Monocytes Percent Auto 5.6 % (2-11); Neutrophils Absolute Auto 11.4 x10*3/uL (2.0-8.3); Neutrophils Percent Auto 72.4 % (45-73); Platelet Count 314 X10*3/uL (160-400); Red Cell Distribution Width 14.4 % (11.0-16.0); White Blood Count 15.7 X10*3/uL (4.8-10.8)
[2024-05-13 13:47] LABS: Alanine Aminotransferase 11 U/L (0-31); Albumin Level 3.9 g/dL (3.5-5.0); Alkaline Phosphatase 97 U/L (39-117); Anion Gap 17 (12-20); Aspartate Amino Transferase 20 U/L (5-31); Bilirubin Direct < 0.2 mg/dL (0.0-0.5); Bilirubin Total 0.2 mg/dL (0.0-1.0); Blood Urea Nitrogen 16 mg/dL (9-16); Calcium 9.6 mg/dL (8.4-10.2); Carbon Dioxide 20 mmol/L (22-29); Chloride 108 mmol/L (96-108); Creatinine Clr Calc Pharmacy 91.2; Estimated Glomerular Filt Rate > 60; Glucose Random 89 mg/dL (60-115); Potassium 3.2 mmol/L (3.3-5.1); Sodium 142 mmol/L (135-145)
[2024-05-13 13:54] LABS: Troponin-I High Sensitivity < 2.7 ng/L (<3.5-17.0)
--- NOTE | 2024-05-13 14:02 | P.CONGS_ITS ---
History of Present Illness Consult details Consult date: 05/13/24 Narrative: 43-year-old female with a past medical history of substance abuse, in remission per patient, complaining of painful abscess to left breast x2 weeks. Patient with recent abscess to right abdomen s/p I&D in the ED on 05/07/2024, admits to compliance with previously prescribed antibiotics (Keflex & Doxy). Denies drainage from area, fever, chills, IV drug use, trauma or bites to area. Mother has history of breast CA and she has yearly mammograms at [facility]. Hx of reduction mammoplasty. Breast US pending. Leukocytosis of 15. Review of Systems 2 Constitutional: Constitutional: Denies chills and Denies fever(s) ENT: Denies dizziness Cardiovascular: Cardiovascular: Denies chest pain and Denies dyspnea Respiratory: Respiratory: Denies cough and Denies dyspnea Gastrointestinal: Gastrointestinal: Denies nausea and Denies vomiting Integumentary/Breasts: Skin/Breast: Reports as per HPI Neurologic: Denies dizziness PMFSH Past Medical History Medical History (Updated 05/13/24 @ 14:59 by Zaida Zepeda PA-C) Alcohol abuse Polysubstance abuse Surgical History Surgical History (Updated 05/13/24 @ 14:58 by Zaida Zepeda PA-C) H/O reduction mammoplasty Social History Social History Alcohol intake: current Alcohol intake frequency: 3 or more drinks per day Alcohol type: hard liquor Advance Directives: No Advance Directives Information Provided: Yes Meds Allergies Allergy/AdvReac Type Severity Reaction Status Date / Time No Known Allergies Allergy Verified 05/13/24 12:51 [No Known Allergies*] Active Medications: Current Medications Clindamycin Phosphate (Cleocin) 600 mg in 50 mls @ 100 mls/hr IV ONCE ONE Stop: 05/13/24 14:23 Physical Exam 2 Vital Signs: Vital Signs: Last Vital Signs Temp 98.7 F 05/13/24 12:48 Pulse 115 H 05/13/24 12:48 Resp 20 05/13/24 12:48 BP 143/94 H 05/13/24 12:48 Pulse Ox 96 05/13/24 12:48 O2 Del Method Room Air 05/13/24 12:48 BMI result Body Mass Index 21.7 Const: General: comfortable, no acute distress and alert O rientation/consciousness: patient oriented x3 Chest: Other: left breast with large fluctuant collection extending from 11-1 o'clock position just superior to nipple with overlying skin ischemia and surrounding erythema and induration, tender to palpation Resp: Effort & Inspection: normal respiratory effort Cardio: Rate: tachycardic Skin: General skin exam: no rashes or lesions noted Neuro: General: patient oriented x3 and moves all extremities Results Labs 05/13/24 13:16 05/13/24 13:16 Labs: Abnormal lab results 05/13/24 Range/Units 13:16 WBC 15.7 H (4.8-10.8) X10*3/uL RBC 3.90 L (4.20-5.50) X10*6/uL Hct 36.6 L (37.0-47.0) % MPV 8.8 L (9.4-12.3) fL Immature Gran % (Auto) 0.6 H (0.0-0.4) % Abs Immat Gran (auto) 0.10 H (0.00-0.03) X10*3/uL Absolute Neuts (auto) 11.4 H (2.0-8.3) x10*3/uL Potassium 3.2 L (3.3-5.1) mmol/L Carbon Dioxide 20 L (22-29) mmol/L Short CBC 05/13/24 Range/Units 13:16 WBC 15.7 H (4.8-10.8) X10*3/uL Hgb 12.2 (12.0-16.0) g/dl Hct 36.6 L (37.0-47.0) % Plt Count 314 D (160-400) X10*3/uL BMP 05/13/24 13:16 Sodium 142 Potassium 3.2 L Chloride 108 Carbon Dioxide 20 L BUN 16 Creatinine 0.60 Calcium 9.6 D Liver Function 05/13/24 Range/Units 13:16 Total Bilirubin 0.2 (0.0-1.0) mg/dL Direct Bilirubin < 0.2 (0.0-0.5) mg/dL AST 20 (5-31) U/L ALT 11 (0-31) U/L Alkaline Phosphatase 97 (39-117) U/L Albumin 3.9 (3.5-5.0) g/dL All other labs normal. Assessment and Plan (1) Left breast abscess: Status: Acute Plan 43 year old female with left breast abscess. Given the overlying skin ischemia, I&D was recommended and performed at bedside. Please see procedure note. Culture obtained. Dressing applied. If lactic acid normal, stable for dc to home with oral antibiotics and f/u in office tomorrow. Patient is comfortable with plan. Procedures Date of Service Date of Service: 05/13/24
[2024-05-13] MEDS: Clindamycin Phosphate/D5W 600 MG/50 ML PIGGYBACK 100 MG IV (14:23)
[2024-05-13] MEDS: Morphine Sulfate 4 MG/ML CARTRIDGE IVPUSH (14:34)
[2024-05-13] MEDS: Lidocaine HCl 1 % MPF 5 ML VIAL 10 ML INFILTRATI (14:36)
[2024-05-13 14:43] LABS: Lactic Acid 2.2 mmol/L (0.5-2.0)
--- NOTE | 2024-05-13 14:59 | PM.PROC ---
Brief Operative Note Date of procedure: 05/13/24 Pre-op diagnosis: left breast abscess Post-op diagnosis: same Procedure: Patient was placed in supine position. The site of procedure was confirmed by the patient. After assuring informed consent, the skin was prepped with Betadine. 10cc 1% lidocaine local anesthesia was then infiltrated over the central portion of the fluctuance. An incision was made with an 11 blade measuring approximately 2 cm the same location. This was deepened into the subcutaneous tissue. A pocket was identified and a large amount of purulent fluid was evacuated. A culture was obtained. The area was then probed with a hemostat to ensure any loculations were broken up and the entire collection was drained. No further fluctuance was appreciated. Pressure was held with sterile gauze until hemostasis ensured. The patient tolerated the procedure very well. She was instructed on local wound care. Anesthesia: local Surgeon: Zaida Zepeda Pathology: other (abscess culture ) Condition: stable Disposition: no change
[2024-05-13 15:13] VITALS: BP 143/94; PULSE 115; RESP 20; TEMP 37.1; O2SAT 96
--- NOTE | 2024-05-13 15:15 | PC.NURSE ---
critical lactic value rec- attempted to initiate fluid, pt refuses kcl and IVF requests discharge.
[2024-05-13 16:22] LABS: Reflex Lactate? Lactic Acid Added
== END 2024-05-13 15:15 | disposition left against medical advice (07) ==
PROVIDERS: Physician Assistant; Physician Assistant Medical; Emergency Provider Emergency Medicine
DX: N61.1 Abscess of the breast and nipple (principal); R07.89 Other chest pain; R00.0 Tachycardia, unspecified; Z79.899 Other long term (current) drug therapy
CPT/HCPCS: 36415; 76642; 80048; 80076; 83605; 84484; 85025; 87040; 87070; 87077; 87186; 87205; 93005; 96374; 96375; 99284; J0736; J2003; J2270

== ENCOUNTER → 2024-05-13 12:53 | Outpatient (BNV) | payer OTHER, SELFPAY | PROVIDERS: Emergency Provider Emergency Medicine; Visit Provider Internal Medicine Cardiovascular Disease | DX: R07.9 Chest pain, unspecified (principal) | CPT/HCPCS: 93010 ==

== ENCOUNTER → 2024-05-13 13:47 | Outpatient (BNV) | payer OTHER, SELFPAY | PROVIDERS: Emergency Provider Emergency Medicine; Visit Provider Physician Assistant Surgical | DX: N61.1 Abscess of the breast and nipple (principal) | CPT/HCPCS: 10060; 99283 ==

== ENCOUNTER 2024-05-15 09:47 | Emergency (ER) | payer OTHER, SELFPAY ==
--- NOTE | ~2024-05-15 | XR_ITS ---
Rib series EXAMINATION: XR RIBS, LEFT XR RIBS 3 VIEWS MINIMUM WITH CHEST LEFT CLINICAL INFORMATION: Fall COMPARISON: No prior exam available. TECHNIQUE: 4 views chest frontal and 3 oblique views FINDINGS: RIBS: Minimally displaced fractures of the left ninth, 10th and 11th rib anterolaterally. LUNGS AND GRISELDA: Both lungs are clear. PLEURA: Normal. Costophrenic angles are sharp, no pneumothorax. HEART: The heart is normal in size. MEDIASTINUM: The mediastinum is within normal limits.. XR/XR ribs LT min 3V w CXR1V IMPRESSION: 1. Minimally displaced fractures of the left ninth, 10th and 11th rib anterolaterally. 2. No radiographic evidence of acute cardiopulmonary disease. Electronically signed by: José Miguel Partida MD 05/15/2024 01:31 PM MINNA HUGGINS
[2024-05-15 09:52] VITALS: BP 142/86; PULSE 85; O2SAT 98
[2024-05-15 09:56] VITALS: BP 131/64; PULSE 92; RESP 16; TEMP 36.9; O2SAT 98; BMI 41.0
--- NOTE | 2024-05-15 09:59 | PC.NURSE ---
patient ambulatory to the bathroom, gait steady
--- NOTE | 2024-05-15 10:46 | ED_ITS ---
HPI - Fall General Chief Complaint: Fall Stated Complaint: FALL RIB PAIN Time Seen by Provider: 05/15/24 10:39 Source: patient and EMS Mode of arrival: EMS Limitations: no limitations History of Present Illness ED Provider: DR. Gruber HPI Narrative: 41-year-old female brought in by ambulance after she sustained a fall at 04:00 in the bathroom hitting the left side of her chest in the bath up patient slipped on the wet floor, no head injury, no LOC, no neck pain, no SOB. Patient stated that she is on antibiotic for breast abscess that was drained recently and overall she feels generalized weakness, no LOC, no CP, no SOB. Related Data Previous Rx's ?Medication ?Instructions ?Recorded sulfamethoxazole 800 1 tab PO Q12H 7 days #14 tabs 08/06/22 mg-trimethoprim 160 mg tablet (Bactrim DS) cephalexin 500 mg capsule 500 mg PO QID 10 days #40 caps 03/06/24 silver sulfadiazine 1 % topical 1 appl topical BID #50 grams 03/06/24 cream (Silvadene) tobramycin 0.3 % eye drops 2 drp ophthalmic (eye) Q4H #5 mL 03/06/24 cephalexin 500 mg capsule 500 mg PO QID 7 days #28 caps 05/07/24 doxycycline hyclate 100 mg capsule 100 mg PO BID 7 days #14 caps 05/07/24 naproxen 500 mg tablet 500 mg PO BID PRN pain 7 days #14 05/07/24 tabs clindamycin HCl 150 mg capsule 450 mg (3 x 150 mg) PO TID 7 days 05/13/24 #63 caps Allergies Allergy/AdvReac Type Severity Reaction Status Date / Time No Known Allergies Allergy Verified 05/15/24 09:58 [No Known Allergies*] Review of Systems Review of Systems: All other systems are reviewed and are negative Constitutional: Reports as per HPI and Reports no additional constitutional complaints Eyes: Reports as per HPI and Reports no additional eye complaints Reports system reviewed and no additional complaints, except as documented Cardiovascular: Reports as per HPI and Reports no additional cardiovascular complaints Respiratory: Reports as per HPI and Reports no additional respiratory complaints Gastrointestinal: Reports as per HPI and Reports no additional gastrointestinal complaints Genitourinary: Reports no additional female genitourinary complaints Musculoskeletal: Reports no additional musculoskeletal complaints Skin/Breast: Reports system reviewed and no additional complaints, except as docu Psychiatric: Reports no additional psychiatric complaints Endocrine: Reports no additional endocrine complaints Hematologic/Lymphatic: Reports no additional hematologic/lymphatic complaints Allergic/Immunologic: Reports no additional allergic/immunologic complaints Reports system reviewed and no additional complaints, except as documented and Reports Abnormal speech present [facility] Past Medical History Medical History Alcohol abuse Polysubstance abuse Surgical History H/O reduction mammoplasty Social History Social History Alcohol intake: current Alcohol intake frequency: 3 or more drinks per day Alcohol type: hard liquor Advance Directives: No Advance Directives Information Provided: Yes Do you have a plan to hurt others: No Plan Physical Exam Vital Signs: Vital Signs: Last Vital Signs Temp 98.5 F 05/15/24 09:56 Pulse 92 05/15/24 09:56 Resp 16 05/15/24 09:56 BP 131/64 05/15/24 09:56 Pulse Ox 98 05/15/24 09:56 O2 Del Method Room Air 05/15/24 09:56 BMI result Body Mass Index 41.0 Vital signs have been reviewed and appear to be correct. Blood pressure elevated. Heart rate normal. Respiratory rate normal. Temperature normal. Oxygen saturation normal. Appearance: Alert. Oriented X3. No acute distress. Head: Normal external exam. Normocephalic. Atraumatic. No Steel signs noted. No raccoon eyes noted Eyes: PERRLA. EOMI. Conjunctiva and sclera normal. Eyelids normal. ENT: TM's Normal. Pharynx normal. Uvula midline. Moist mucous membranes. No trismus noted. No drooling noted. No muffled voice noted. Neck: Normal inspection. Neck supple. FROM. No adenopathy. Thyroid Normal. No meningeal signs. No neck mass noted. CVS: Normal heart rate and rhythm. Heart sound normal. No murmurs noted. Pulses normal throughout. Respiratory: No respiratory distress. Painless inspiration. Breath sounds normal. No wheezes/rales/rhonchi noted. Left-sided chest wall tenderness, no st ep-off, no deformity, no ecchymosis. No accessory muscle usage noted or decreased air movement noted. Abdomen: Soft and nontender. Bowel sounds normal in all 4 quadrants. No distention noted. No organomegaly noted. No visible injury noted. Back: No CVA tenderness. Full range of motion noted. Skin: Skin warm and dry. Normal skin color. Normal skin turgor. No rashes/lesions/lacerations noted. Extremities: No lower extremity edema. Extremities exhibit normal range of motion. Extremities nontender. Neuro: Oriented X 3. Cranial nerve exam: II-XII are grossly intact No motor deficit. No sensory deficit. Reflexes normal. Course Reevaluation(s) Reevaluation #1: patient opted to leave before full evaluation and full treatment fully understands risks of leaving against medical advice. Time: 12:00 Medications Administered Discontinued Medications Generic Name Dose Route Start Last Admin Trade Name Freq PRN Reason Stop Dose Admin Ibuprofen 600 mg 05/15/24 10:45 05/15/24 10:53 Ibuprofen 600 Mg Tablet PO 05/15/24 10:46 600 mg ONCE ONE Administration Oxycodone HCl 5 mg 05/15/24 10:45 05/15/24 10:53 Oxycodone Hcl Immed Release 5 Mg Tablet PO 05/15/24 10:46 5 mg ONCE ONE Administration Medical Decision Making Differential Diagnosis Differential Diagnoses: The differential diagnosis associated with the presentation includes ( Rib fracture, chest wall contusion, pneumonia, pneumothorax, pleural effusion.) Admission/Observation Consideration of admission/observation: Escalation of care including admission/observation considered Discharge Plan Discharge Clinical Impression: Chest wall contusion, Left rib fracture Patient Disposition: Left Against Medical Advice Prescriptions: No Action sulfamethoxazole-trimethoprim [Bactrim DS] 800-160 mg tablet 1 tab PO Q12H 7 Days Qty: 14 0RF silver sulfadiazine [Silvadene] 1 % cream 1 appl topical BID Qty: 50 0RF Rx Instructions: apply a 1.5 mm thickness cephalexin 500 mg capsule 500 mg PO QID 10 Days Qty: 40 0RF tobramycin 0.3 % drops 2 drp ophthalmic (eye) Q4H Qty: 5 0RF cephalexin 500 mg capsule 500 mg PO QID 7 Days Qty: 28 0RF doxycycline hyclate 100 mg capsule 100 mg PO BID 7 Days Qty: 14 0RF naproxen 500 mg tablet 500 mg PO BID PRN (Reason: pain) 7 Days Qty: 14 0RF clindamycin HCl 150 mg capsule 450 mg PO TID 7 Days Qty: 63 0RF Stand Alone Forms: Against Medical Advice Discharge Date/Time: 05/15/24 12:34 Print Language: Thai
[2024-05-15] MEDS: Ibuprofen 600 MG TABLET PO (10:53)
[2024-05-15] MEDS: oxyCODONE HCl Immed Release 5 MG TABLET PO (10:53)
--- NOTE | 2024-05-15 12:33 | PC.NURSE ---
patient requested to leave AMA, ama papers given, patient ambulated off of unit with steady gait
== END 2024-05-15 12:34 | disposition left against medical advice (07) ==
PROVIDERS: Emergency Provider Emergency Medicine; PCP Internal Medicine
DX: S20.212A Contusion of left front wall of thorax, initial encounter (principal); S22.32XA Fracture of one rib, left side, initial encounter for closed fracture; W01.198A Fall on same level from slipping, tripping and stumbling with subsequent striking against other object, initial encounter; Y93.E1 Activity, personal bathing and showering; Y92.012 Bathroom of single-family (private) house as the place of occurrence of the external cause; Y99.9 Unspecified external cause status; Z53.29 Procedure and treatment not carried out because of patient's decision for other reasons; Z79.899 Other long term (current) drug therapy
CPT/HCPCS: 71101; 99283; 99284

== ENCOUNTER 2024-06-09 08:54 | Emergency (ER) | payer OTHER, SELFPAY ==
[2024-06-09 09:11] VITALS: BP 128/59; PULSE 105; RESP 20; TEMP 35.9; O2SAT 97; BMI 26.7
== END 2024-06-09 10:31 | disposition left against medical advice (07) ==
PROVIDERS: Emergency Provider Emergency Medicine; PCP Internal Medicine
DX: K92.1 Melena (principal)
CPT/HCPCS: 99281

== ENCOUNTER 2025-03-30 17:11 | Emergency (ER) | payer OTHER, SELFPAY ==
--- NOTE | ~2025-03-30 | XR_ITS ---
CLINICAL HISTORY: bloating,constipation 1 view abdomen Comparison: None provided Findings: Moderate stool burden. No bowel obstruction. No pneumoperitoneum or pneumatosis. Multiple phleboliths in the pelvis. No acute fractures. IMPRESSION: Moderate stool burden. This document has been electronically signed by: Sonam Jj MD on 03/30/2025 18:07:15
[2025-03-30 17:13] VITALS: BP 139/64; PULSE 92; RESP 18; TEMP 36.6; O2SAT 99; BMI 30.2
--- NOTE | 2025-03-30 17:13 | ED.GENADULT ---
HPI - General Adult General Chief complaint: Abdominal Pain Stated complaint: abd pain Time Seen by Provider: 03/30/25 19:17 History of Present Illness ED Provider: Dr. Morales HPI narrative: 44-year-old female presented hospital today for evaluation of constipation. She states she had not had a bowel movement in 1 week. It is complain of distended abdomen. Patient stated that she has places to go and requests to be discharged at this time. Related Data Previous Rx's ?Medication ?Instructions ?Recorded sulfamethoxazole 800 1 tab PO Q12H 7 days #14 tabs 08/06/22 mg-trimethoprim 160 mg tablet (Bactrim DS) cephalexin 500 mg capsule 500 mg PO QID 10 days #40 caps 03/06/24 silver sulfadiazine 1 % topical 1 appl topical BID #50 grams 03/06/24 cream (Silvadene) tobramycin 0.3 % eye drops 2 drp ophthalmic (eye) Q4H #5 mL 03/06/24 cephalexin 500 mg capsule 500 mg PO QID 7 days #28 caps 05/07/24 doxycycline hyclate 100 mg capsule 100 mg PO BID 7 days #14 caps 05/07/24 naproxen 500 mg tablet 500 mg PO BID PRN pain 7 days #14 05/07/24 tabs clindamycin HCl 150 mg capsule 450 mg (3 x 150 mg) PO TID 7 days 05/13/24 #63 caps omeprazole 20 mg capsule,delayed 20 mg PO DAILY 30 days #30 caps 03/30/25 release peg 3350-electrolytes 236 240 ml PO Q10M #4,000 mL 03/30/25 gram-22.74 gram-6.74 gram-5.86 gram solution (Golytely) sennosides 8.6 mg capsule (senna) 8.6 mg PO DAILY 14 days #14 caps 03/30/25 Allergies Allergy/AdvReac Type Severity Reaction Status Date / Time No Known Allergies (No Known Allergy Verified 03/30/25 17:14 Allergies*) Review of Systems Review of Systems: Pertinent review of systems as mentioned in [facility]. All other system otherwise negative. [facility] Past Medical History [facility] Narrative: Medical history as mentioned in HPI Medical History Alcohol abuse Polysubstance abuse Surgical History H/O reduction mammoplasty Social History Social History Alcohol intake: current Alcohol intake frequency: 3 or more drinks per day Alcohol type: hard liquor Smoked in Last 30 Days: Yes Use of substances other than those prescribed or required for medical reasons: No Advance Directives: No Advance Directives Information Provided: Yes Do you have a plan to hurt others: No Plan Patient : No Physical Exam ED Exam Exam: General: Pleasant, no distress, interacting appropriately Head: Normacephalic, atraumatic ENT: oral mucosa moist, neck supple, no tracheal deviation Gastrointestinal: Soft, distended abdomen diffuse tenderness on exam Extremities: No limb pain or swelling, no calf tenderness Skin: Warm and dry Psychiatric: Appropriate mood and thoughts Vital Signs: Vital Signs - 24 hr 03/30/25 17:13 Temperature 98 F Pulse Rate 92 Respiratory Rate 18 Blood Pressure 139/64 Pulse Oximetry 99 Oxygen Delivery Method Room Air BMI result Body Mass Index 30.2 Course Course Course Narrative: This is a rapid medical exam performed by Brenda Casey NP: Additional HPI, ROS, PE not included below will be deferred to primary provider. Patient is a 44y/o F presenting with complaint of bloating, constipation x 1 week. Now having lower back pain, dizziness, hoarse voice. Plan: labs, viral serology, KUB Medical Decision Making Medical Decision Making [facility] Narrative: 44-year-old female presented hospital today for distended abdomen and diffuse abdominal pain. Patient states she had not had a bowel movement in 1 week. Patient is a patient's history and presentation I suspect patient is constipated she does have moderate stool burden on x-ray. Patient does have anemia of 9 hemoglobin. She is currently on iron pill. She has this states she does have some dark stool. This may be secondary to iron versus underlying GI bleed. We will plan to discharge patient on omeprazole. Patient is requesting to be discharged at this time. We will plan to discharge patient on a bottle of GoLYTELY and start her on senna. Patient is agreement with this plan. She will plan to follow up with her primary care doctor. Patient will be discharged Differential Diagnosis Differential Diagnoses: The differential diagnosis associated with the presentation includes Constipation, diarrhea, gastritis, gastric ulcer Lab Data [facility] Lab Attestation statement: I reviewed the patient's lab results. 03/30/25 17:40 03/30/25 17:40 Labs: Lab Results 03/30/25 Range/Units 17:40 WBC 7.5 (4.8-10.8) X10*3/uL RBC 2.85 L D (4.20-5.50) X10*6/uL Hgb 9.7 L D (12.0-16.0) g/dl Hct 30.7 L (37.0-47.0) % MCV 107.7 H (80.0-98.0) fL MCH 34.0 H (27.0-33.0) pg MCHC 31.6 (31.0-35.0) g/dl RDW 18.4 H (11.0-16.0) % Plt Count 373 (160-400) X10*3/uL MPV 9.7 (9.4-12.3) fL Immature Gran % (Auto) 0.4 (0.0-0.4) % Neut % (Auto) 53.6 (45-73) % Lymph % (Auto) 29.8 (20-40) % Sandoval % (Auto) 14.0 H (2-11) % Eos % (Auto) 1.5 (0-4) % Baso % (Auto) 0.7 (0-2) % Lymph # (Auto) 2.2 (1.2-4.9) X10*3/uL Sandoval # (Auto) 1.1 (0.1-1.2) X10*3/uL Eos # (Auto) 0.1 (0.0-0.4) X10*3/uL Baso # (Auto) 0.1 (0.0-0.2) X10*3/uL Abs Immat Gran (auto) 0.03 (0.00-0.03) X10*3/uL Absolute Neuts (auto) 4.0 (2.0-8.3) x10*3/uL Absolute Nucleated RBC 0.000 (0.0-0.012) X10*3/uL Nucleated RBC % (auto) 0.0 (0.0-0.2) /100WBC Sodium 140 (135-145) mmol/L Potassium 4.8 D (3.3-5.1) mmol/L Chloride 107 (96-108) mmol/L Carbon Dioxide 25 (22-29) mmol/L Anion Gap 13 (12-20) BUN 11 (9-16) mg/dL Creatinine 0.91 (0.5-1.4) mg/dL Estim Creat Clear Calc 66.0 Estimated GFR > 60 Random Glucose 93 (60-115) mg/dL Calcium 9.1 (8.4-10.2) mg/dL Total Bilirubin 0.4 (0.0-1.0) mg/dL AST 75 H (5-31) U/L ALT 56 H (0-31) U/L Alkaline Phosphatase 111 (39-117) U/L Total Protein 7.4 (6.5-8.0) g/dL Albumin 4.0 (3.5-5.0) g/dL Beta HCG, Quant < 2 mIU/mL COVID-19 (BOY) Negative (Negative) COVID-19 Clin Com See Note Influenza Type A (JERED) Negative (Negative) Influenza Type B (JERED) Negative (Negative) Influenza A & B Note See Note Independent Interpretation I performed an independent interpretation of an: Plain X-Ray Discharge Plan Discharge Clinical Impression: Constipation Qualifiers: Constipation type: unspecified constipation type Qualified Code(s): K59.00 - Constipation, unspecified Patient Disposition: Home, Self-Care Instructions: Constipation (ED) Prescriptions: New senna 8.6 mg capsule 8.6 mg PO DAILY 14 Days Qty: 14 0RF peg 3350-electrolytes [Golytely] 236-22.74-6.74 -5.86 gram recon soln 240 ml PO Q10M Qty: 4000 0RF Rx Instructions: until fecal effluent is clear omeprazole 20 mg capsule,delayed release(DR/EC) 20 mg PO DAILY 30 Days Qty: 30 0RF No Action sulfamethoxazole-trimethoprim [Bactrim DS] 800-160 mg tablet 1 tab PO Q12H 7 Days Qty: 14 0RF silver sulfadiazine [Silvadene] 1 % cream 1 appl topical BID Qty: 50 0RF Rx Instructions: apply a 1.5 mm thickness cephalexin 500 mg capsule 500 mg PO QID 10 Days Qty: 40 0RF tobramycin 0.3 % drops 2 drp ophthalmic (eye) Q4H Qty: 5 0RF cephalexin 500 mg capsule 500 mg PO QID 7 Days Qty: 28 0RF doxycycline hyclate 100 mg capsule 100 mg PO BID 7 Days Qty: 14 0RF naproxen 500 mg tablet 500 mg PO BID PRN (Reason: pain) 7 Days Qty: 14 0RF clindamycin HCl 150 mg capsule 450 mg PO TID 7 Days Qty: 63 0RF Print Language: Surinamese
[2025-03-30 17:46] LABS: MANUAL DIFF FLAG NO
[2025-03-30 18:04] LABS: Hematocrit 30.7 % (37.0-47.0); Hemoglobin 9.7 g/dl (12.0-16.0); Imm Gran Abs Auto 0.03 X10*3/uL (0.00-0.03); Imm Gran Pct Auto 0.4 % (0.0-0.4); Lymphocytes Absolute Auto 2.2 X10*3/uL (1.2-4.9); Mean Corpuscular HGB Conc 31.6 g/dl (31.0-35.0); Mean Corpuscular Hemoglobin 34.0 pg (27.0-33.0); Mean Corpuscular Volume 107.7 fL (80.0-98.0); NRBC Abs Auto 0.000 X10*3/uL (0.0-0.012); NRBC Pct Auto 0.0 /100WBC (0.0-0.2); Platelet Count 373 X10*3/uL (160-400); Red Blood Count 2.85 X10*6/uL (4.20-5.50); White Blood Count 7.5 X10*3/uL (4.8-10.8)
[2025-03-30 18:12] LABS: COVID-19 Test Negative (Negative); IDNOW Serial# 55D5AD1C; IDNOW Serial# 58CA691E; Influenza B2 Negative (Negative)
[2025-03-30 18:20] LABS: Alanine Aminotransferase 56 U/L (0-31); Albumin Level 4.0 g/dL (3.5-5.0); Alkaline Phosphatase 111 U/L (39-117); Anion Gap 13 (12-20); Aspartate Amino Transferase 75 U/L (5-31); Blood Urea Nitrogen 11 mg/dL (9-16); Calcium 9.1 mg/dL (8.4-10.2); Carbon Dioxide 25 mmol/L (22-29); Chloride 107 mmol/L (96-108); Creatinine Clr Calc Pharmacy 66.0; Estimated Glomerular Filt Rate > 60; Potassium 4.8 mmol/L (3.3-5.1); Sodium 140 mmol/L (135-145); Total Protein 7.4 g/dL (6.5-8.0)
--- OUTSIDE RECORDS SUMMARY | 2025-03-30 19:07 | XMS_ITS ---
[facility] Care Team Organization Name Specialty Phone Email Start Date End Da te [facility] Pamela Patrick Primary Care 05/14/2022 4
--- OUTSIDE RECORDS SUMMARY | 2025-03-30 19:07 | XMS_ITS | Encounter Summary ---
Author Organization [facility] Address [id number] [place] [id number] Care Team Providers Care Wire Harness Assembler Name Role Phone Pamela Patrick MD Primary Care Provider [phone] Encounter Details Date Type Department Care Team (Late st Contact Info) Description 03/10/2025 Telephone Adult Medicine [facility] [address] [place] [address] Pamela Patrick MD [address], [place] Social History Tobacco Use Types Packs/Day Years Used Date Smoking Tobacco: Every Day Cigarettes Smokeless Tobacco: Never Alcohol Use Standard Drinks/Week Comments No 0 (1 standard drink = 0.6 oz pur e alcohol) Comments Unknown Sex and Gender Information Value Date Recorded Sex Assigned at Not on file Legal Sex Female 2:36 AM EST Gender Identity Not on file Sexual Orientation Not on file documented as of this encounter Plan of Treatment Not on file documented as of this encounter Visit Diagnoses Not on filedocumented in this encounter Care Teams Wire Harness Assembler Relationship Specialty Start Date End Date Pamela Patrick MD [address], [place] PCP - General Internal Medicine 09/19/15 documented as of this encounter
--- OUTSIDE RECORDS SUMMARY | 2025-03-30 19:07 | XMS_ITS | Clinical Summary ---
Author Organization [facility] [address] [place] [address] [place] [address] Phone Care Team Providers Care Public Improvement Inspector Name Role Phone Pamela Patrick MD Primary Care Provider [phone] Allergies Active Allergy Reactions Criticality Noted Date Comments Other 09/15/2017 Seasonal Allergies Medications cloNIDine (CATAPRES) 0.1 mg tablet Take 1 tablet (0.1 mg total) by mouth 2 (two) times a day. Active naproxen (NAPROSYN) 500 mg tablet Take 1 Tablet by mouth every 12 hours. (with FULL meal) 11/14/2022 Active buprenorphine-na loxone (SUBOXONE) 8-[address] 24 mg under the tongue daily. 08/19/2018 Active buspirone HCl (BUSPIRONE ORAL) Take by mouth. Active Active Problems Problem Noted Date Diagnosed Date Hypertension 09/21/2015 Opioid dependence ([facility] V24, [facility] V28) Overview (07/06/2024): suboxone Anxiety 06/20/2008 Insomnia 06/20/2008 Encounters Date Type Department Care Team Description 03/10/2025 Telephone Adult Medicine [address] [phone] Pamela Patrick MD 03/10/2025 Nurse Triage Adult Medicine [address] [phone] Pamela Patrick MD from Last 3 Months Immunizations Name Administration Dates Next Due Influenza trivalent, 0.5mL, preservative free (Fluarix; FluLaval; Fluzone) ages 6mo and older (Afluria) 3 years and older 03/29/2021 Tdap Tetanus diptheria acell ular pertussis (Boostrix; Adacel) 7yo and older 11/15/2021,06/20/2008 Surgical History Surgery Date Site/Laterality Comments SECTION PROCEDURE: HISTORICAL DELIVERY; COMMENT: x2 BREAST REDUCTION PROCEDURE: NM BREAST REDUCTION TUBAL LIGATION PROCEDURE: HISTORICAL TUBAL LIGATION Medical History Medical History Date Comments Hypertension 09/21/2015 DX:Hypertension Opioid dependence ([facility] V 24, [facility] V28) 09/21/2015 DX:Opioid dependence ([facility]); COMMENT: suboxone Depression with anxiety DX:Depre ssion with anxiety MRSA (methicillin resistant staph aureus) culture positive DX:MRSA (methicillin resista nt staph aureus) culture positive Family history of hypothyroidism 08/22/2017 DX:Family history of hypothyroidism Family History Medical History Relation Name Comments Breast cancer Aunt 1 maternal aunt Lung cancer Aunt 2 maternal aunt-s moker- 56 Breast cancer Aunt 3 maternal aunt Other: unknown Father no contact or medical info+ Lung cancer Maternal Grandfather smoker- at age 62 Breast cancer Maternal Grandmother deceas ed age 42; bilateral Breast cancer Mother unilateral, BR CA negative Diabetes Mother bipolar Other: heart failure Mother Breast cancer Other 1 2 mat aunts Other cancer Other 2 maternal great aunt; ? primary Relation Name Status Comments Aunt 1 Aunt 2 Aunt 3 Brother Alive Father Alive Maternal Grandfather Maternal Grandmother Mother bipolar Other 1 2 mat aunts Alive Other 2 Social History Tobacco Use Types Packs/Day Years [...] on file Sexual Orientation Not on file Obstetrics History Last Filed Vital Signs Vital Sign Reading Time Taken Comments Blood Pressure 90/50 11/14/2022 8:07 AM EDT C Pulse 56 11/14/2022 8:07 AM EDT Temperature - - Respiratory Rate - - Oxygen Saturation - - Inhaled Oxygen Concentration - - Weight 62.6 kg (138 lb) 11/14/2022 8:07 AM EDT Height 154.9 cm (5' 1 ) 11/14/2022 8:07 AM EDT Body Mass Index 26.07 11/14/2022 8:07 AM EDT Plan of Treatment Health Maintenance Due Date Last Done Comments Hepatitis A Vaccines (1 of 2 - Risk 2-dose series) 01/01/2000 Hepatitis B Vaccines (1 of 3 - 19+ 3-dose series) 01/01/2000 Pneumococcal Vaccine: Pediatrics (0 to 5 Years) and At-Risk Patients (6 to 49 Years) (1 of 2 - PCV) 01/01/2000 Social Influencers of Health Screening 06/16/2022 Hypertension/CHF/CAD Annual BMP Blood Test 06/18/2022 04/10/2019 Cholesterol Screening (Lipid Panel) 08/22/2022 08/22/2017 Breast Cancer Screening 12/06/2023 12/06/19, 08/27/2017, 02/19/2017, Additional history exists Depression Screening 07/07/2024 COVID-19 Vaccine (3 - season) 2025 04/26/2021, 03/29/2021 Influenza Vaccine (#1) 2025 03/29/2021 Cervical Cancer Screening: HPV 11/14/2026 11/14/2021 DTaP,Tdap,and Td Vaccines (3 - Td or Tdap) 11/16/2031 11/15/2021, 06/20/2008 HIV Screening Completed 05/02/2022 Hepatitis C Screening Completed 05/02/2022 HIB Vaccines Aged Out No longer eligi ble based on patient's age to complete this topic HPV Vaccines Aged Out No longer eligi ble based on patient's age to complete this topic IPV Vaccines Aged Out No longer eligi ble based on patient's age to complete this topic MMR Vaccines Aged Out No longer eligi ble based on patient's age to complete this topic Meningococcal ACWY Vaccine Aged Out N o longer eligible based on patient's age to complete this topic Meningococcal B Vaccine Aged Out No l onger eligible based on patient's age to complete this topic RSV Immunization Patients Under 20 months Aged Out No longer eligible based on patient's age to complete this topic Varicella Vaccines Aged Out No longer eligible based on patient's age to complete this topic Procedures Procedure Name Priority Date/Time Associated Diagnosis Comments HEPATITIS C SCREENING Routine 05/02/2022 HIV SCREENING Routine 05/02/2022 DIAGNOSTIC MAMMOGRAPHY INCLUDING CAD BILATERAL Routine 12/05/2021 9:45 AM EDT Encounter for screening mammogram for malignant neoplasm of breast HPV Routine 11/14/2021 ANNUAL BMP BLOOD TEST Routine 04/10/2019 LIPID PANEL Routine 08/22/2017 from Last 3 Months or Most Recently Relevant to Health Maintenance Results * HIV Screening (05/02/2022) HIV Screening Abstracted Historical Provider MD HEALTH MAINTENANCE Final Result * Hepatitis C Screening (05/02/2022) Hepatitis C Screening Abstracted Historical Provider MD HEALTH MAINTENANCE Final Result * DIAGNOSTIC MAMMOGRAPHY INCLUDING CAD BILATERAL (12/05/2021 9:45 AM EDT) Anatomical Region Laterality Modality Mammography 11/14/2021 4:12 PM EDT Narrative 12/05/2021 9:50 AM EDT This is a summary report. The complete report is available in the patient's medical record. If you cannot access the medical record, please contact the sending organization for a detailed fax or copy. Diagnostic bilateral mammography: A palpable abnormality was reported in the upper outer quadrant of the right breast. The patient herself has been unable to find a palpable abnormality and was unable to indicate an area of concern. Standard screening views were performed using both 2D mammography and tomosynthesis, reviewed with computer-aided detection and compared to previous. The breasts consist of a mixture of fatty and fibroglandular tissue. Benign dystrophic calcifications are again noted bilaterally and are stable. No focal abnormalities or changes are identified. There are no findings to account for a palpable abnormality in the right upper outer quadrant. There was no targetable mammographic abnormality for ultrasound correlation. Impression: Benign bilateral diagnostic mammography. BI-RADS Category 2, benign. 5 year breast cancer risk assessment 1.2 % Lifetime breast cancer risk assessment 19.9 % Breast cancer risk category High (>20%) Procedure Note David Garrett MD - 06/25/2022 This is a summary report. The complete report is available in thepatient's medical record. If you cannot access the medical record, pleasecontact the sending organization for a detailed fax or copy. Diagnostic bilateral mammography: A palpable abnormality was reported inthe upper outer quadrant of the right breast. The patient herself hasbeen unable to find a palpable abnormality and was unable to indicate anarea of concern. Standard screening views were performed using both 2Dmammography and tomosynthesis, reviewed with computer-aided detection andcompared to previous. The breasts consist of a mixture of fatty andfibroglandular tissue. Benign dystrophic calcifications are again notedbilaterally and are stable. No focal abnormalities or changes areidentified. There are no findings to account for a palpable abnormalityin the right upper outer quadrant. There was no targetable mammographicabnormality for ultrasound correlation. Impression: Benign bilateral diagnostic mammography. BI-RADS Category 2, benign. 5 year breast cancer risk assessment 1.2 % Lifetime breast cancer risk assessment 19.9 % Breast cancer risk category High (>20%) Ibeth Spicer CN IMG BI PROCEDURES Final Result * Cervical Cancer Screening: HPV (11/14/2021) [facility] Cervical Cancer Screening: HPV Negative, Abstracted Historical Provider [facility] MAINTENANCE Final Result * Annual BMP Blood Test (04/10/2019) [facility] Annual BMP Blood Test Abstracted [facility] Provider [facility] Final Result * (ABNORMAL) Lipid panel (08/22/2017) [facility] LDL/HDL Ratio 3 0 - 4 Triglycerides 54 0 - 150 mg/dL Cholesterol 189 0 - 200 mg/dL HDL 59 >=40 mg/dL LDL Cholesterol 119(A) 0 - 100 mg/dL Blood Venous blood specimen / Unknown us Historical Provider LAB BLOOD ORDERABLES Zakiya vamsi Result from Last 3 Months or Most Recently Relevant to Health Maintenance Insurance [facility] [employer] Care Teams Public Improvement Inspector Relationship Specialty Start Date End Date Pamela Patrick MD [address] [place] [address] PCP - General Internal Medicine 09/19/15
[2025-03-30 19:34] VITALS: BP 137/69; PULSE 100; RESP 16; TEMP 36.8; O2SAT 95
== END 2025-03-30 19:39 | disposition home or self-care (01) ==
PROVIDERS: Registered Nurse Emergency; Emergency Provider Student in an Organized Health Care Education/Training Program; PCP Internal Medicine
DX: K59.00 Constipation, unspecified (principal); D64.9 Anemia, unspecified; Z79.899 Other long term (current) drug therapy
CPT/HCPCS: 74018; 80053; 84702; 85025; 87502; 87635; 99283; 99284

== ENCOUNTER → 2025-03-30 17:14 | Outpatient (BNV) | payer OTHER, SELFPAY | PROVIDERS: PCP Internal Medicine; Visit Provider Radiology Diagnostic Radiology | DX: K59.00 Constipation, unspecified (principal) | CPT/HCPCS: 74018 ==